=== PATIENT | female | born 1980 ===

== ENCOUNTER 2024-04-17 13:28 | Outpatient (AMB) | payer OTHER, SELFPAY ==
[2024-04-17 13:30] VITALS: BP 150/120; PULSE 88; O2SAT 95; BMI 34.5
--- NOTE | 2024-04-17 13:30 | MHC.PC.OV ---
Vital Signs 04/17/24 13:30 04/17/24 14:04 Height 5 ft 7 in Weight 220 lb 6 oz BMI 34.5 BP 150/120 H 160/110 H Blood Pressure Location Lt brachial Lt brachial Position Sitting Sitting Pulse 88 Pulse Source Pulse Oximeter Pulse Oximetry (%) 95 Oxygen Delivery Method Room Air Intake Visit Reasons: establish care Intake Note: The patient is a new patient establishing care for ADHD. They are transferring care from [facility]. Medical records were requested today. Prosthetic Technician Required: No Accompanied by: Self / Same As Patient Allergies Milk Containing Products (Dairy) Allergy (Mild, Verified 04/17/24 13:51) stomach ache Medication List - Last Reconciled 04/17/24 by Caity Qiu PA-C fluticasone propionate 50 mcg/actuation 1 spray intranasal DAILY lisdexamfetamine 20 mg PO DAILY melatonin 10 mg PO BEDTIME PRN Tobacco use date assessed: 04/17/24 Dental Screening Dental Screen Date: 04/17/24 Did you have a dental visit in the last 12 months?: Yes Did you have a dental problem in the last 6 months where you did not have access to dental care?: No Was dental information given to patient?: Patient has dentist HPI establish care HPI Details 43 year old female coming to the office for the first time. Patient is not known to [facility] [place]. Presenting with concerns regarding elevated blood pressure readings. She expresses uncertainty as to whether this is due to white coat syndrome or true hypertension, with consistently high readings documented in clinical settings. She has been diagnosed with Adult Attention Deficit Hyperactivity Disorder (ADHD), which is being managed with Vyvanse, and she is under the care of psychiatrist Ramana Murray. The patient also reports a history of chronic dry eye syndrome secondary to laser eye correction in 2019 and is using Xiidra eye drops as part of the management routine, addressing resulting sensitivity and inadequate tear production. She follows with gynecology through [facility] [place] for routine Pap smears and mammograms. [facility] Medical History (Updated 04/17/24 @ 14:17 by Caity Qiu PA-C) MTHFR mutation Depression Endocarditis Obesity, class 2 ADHD Surgical History (Updated 04/17/24 @ 13:46 by JUAN ANTONIO Santos) History of bilateral salpingectomy Family History (Updated 04/17/24 @ 13:58 by Caity Qiu PA-C) Mother Breast cancer Social History Housing: House Patient Tobacco Use Status: Never used Tobacco e-Cigarette/Vaping Use: Never Used service: No Current occupational status: employed Cognitive needs: No Hearing needs: No Vision needs: No Female Reproductive History Menstrual Total pregnancies: 2 Full term: 2 History of abnormal pap smear: No Questionnaire PHQ-9 Over the last 2 weeks, how often have you been bothered by any of the following problems? 1. Little interest or pleasure in doing things: nearly every day 2. Feeling down, depressed, or hopeless: several days 3. Trouble falling or staying asleep, or sleeping too much: several days 4. Feeling tired or having little energy: several days 5. Poor appetite or overeating: several days 6. Feeling bad about yourself - or that you are a failure or have let yourself or your family down: not at all 7. Trouble concentrating on things, such as reading the newspaper or watching television: not at all 8. Moving or speaking so slowly that other people could have noticed. Or the opposite - being so fidgety or restless that you have been moving around a lot more than usual: not at all 9. Thoughts that you would be better off or of hurting yourself in some way: not at all Total score: 7 Depression Screening Interpretation: Positive Depression Screening Follow-up: Existing condition and Declines treatment Depression Screening Done: Yes 88659 - PHQ-9 Billing: Yes Source: Developed by Drs. Jean Pierre Ojeda, Sahra Green, Angel Reynaga and colleagues, with an educational airam from [employer]. Thrive Questionnaire Date Thrive assessed: 04/17/24 I am a: Patient What is your living situation today?: I have a steady place to live Within the past 12 months, did the food you bought not last and you didn't have the money to get more?: I choose not to answer this question Within the past 12 months, did you worry whether your food would run out before you got money to buy more?: I choose not to answer this question Do you have trouble paying for medicines?: I choose not to answer this question Do you have trouble getting transportation to medical appointments?: No Do you have trouble paying your heating and electricity bill?: I choose not to answer this question Do you have trouble taking care of your child, family member or friend?: No Do you have trouble with day-to-day activities such as bathing, preparing meals, shopping, managing finances, etc.?: No Are you currently unemployed and looking for a job?: No Are you interested in more education?: No Please select the resources that you would like help with: None Currently or been in a relationship where the following occur: No concerns reported THRIVE Score: 0 AUDIT C Alcohol Use Questionnaire (AUDIT-C) 1. How often do you have a drink containing alcohol?: Monthly or less 2. How many drinks containing alcohol do you have on a typical day when you are drinking?: 1 or 2 3. How often do you have six or more drinks on one occasion?: Never Total Score: 1 DALI-7 AMB Questionnaire DALI-7 Date DALI - 7 assessed: 04/17/24 Feeling nervous, anxious, or on edge: 1 = Several days Not being able to stop or control worryin = Several days Worrying too much about different things: 1 = Several days Trouble relaxin = Several days Being so restless that it is hard to sit still: 0 = Not at all Becoming easily annoyed or irritable: 0 = Not at all Feeling afraid as if something awful might happen: 0 = Not at all Total DALI-7 score (0-4 normal; 5-9 mild; 10-14 moderate; 15-21 severe): 4 Source: Developed by Drs. Jean Pierre Ojeda, Sahra Green, Angel Reynaga and colleagues, with an educational airam from [employer]. DALI-7 Assessment Billing DALI-7 Assessment Tool: DALI-7 Assessment 07475 Review of Systems Const Denies body aches, Denies chills, Denies fever(s), Denies headache(s) and Denies poor appetite Eyes Reports no additional complaints ENT Denies dizziness and Denies headache(s) Card Denies chest pain, Denies syncope, Denies edema, Denies irregular heart rhythm, Denies lightheadedness and Denies dyspnea Resp Denies cough and Denies dyspnea GI Denies abdominal pain, Denies constipation, Denies diarrhea, Denies nausea and Denies vomiting Reports no additional complaints Musc Reports no additional complaints and Denies abnormal gait Skin/Breast Reports system reviewed and no additional complaints, except as documented Neuro Denies abnormal gait, Denies dizziness, Denies syncope and Denies headache(s) Psych Reports no additional complaints Physical exam (Primary Care) Vital Signs: Last Vital Signs Pulse 88 04/17/24 13:30 BP 150/120 H 04/17/24 13:30 Pulse Ox 95 04/17/24 13:30 Oxygen Delivery Method Room Air 04/17/24 13:30 BMI result Body Mass Index 34.5 Tobacco/Smoking Status: Tobacco use Status Tobacco use date assessed 04/17/24 04/17/24 13:36 Patient Tobacco Use Status Never used Tobacco 04/17/24 13:36 Tobacco use type 04/17/24 13:36 e-Cigarette/Vaping Use Never Used 04/17/24 13:36 PHQ-9: PHQ-9 Score PHQ-9: Total score 7 04/17/24 13:36 Depression Screening Interpretation: Positive Depression Screening Follow-up: Existing condition and Declines treatment Thrive Assessment: Date of Thrive Assessment Date Thrive assessed 04/17/24 04/17/24 13:33 Currently or been in a relationship where the following occur: No concerns reported Const General: cooperative, healthy appearing, comfortable and no acute distress Orientation/consciousness: patient oriented x3 HENMT Head: Yes normocephalic Ears: hearing grossly normal bilaterally General nose exam: Normal external nose present Eyes General: appearance normal, both eyes and all related structures Conjunctivae: conjunctivae normal Neck Neck: Yes full ROM and Yes no lymphadenopathy Resp Effort & Inspection: normal respiratory effort Auscultation: clear to auscultation bilaterally, no crackles, no rales, no rhonchi and no wheezes Cardio Rate: regular rate Rhythm: regular rhythm Skin General skin exam: no rashes or lesions noted Neuro General: patient oriented x3 Gait exam (Neuro): Normal gait present Extrem General: Yes normal to inspection, Yes full ROM and No edema Psych Affect: normal affect Attitude: cooperative Insight: Good insight present (Psych) Judgement: Good judgement present (Psych) Coding Level of Care Code New Pt Level 4 (63018) Diagnoses Elevated blood pressure reading without diagnosis of hypertension R03.0 Screening for hypercholesterolemia Z13.220 ADHD F90.9 Depression F32.A Additional Codes DALI-7 Assessment Billing - DALI-7 Assessment Tool: DALI-7 Assessment 87908 ([id number]) PHQ-9 - 17207 - PHQ-9 Billing: Yes ([id number]) Assessment & Plan Assessment & Plan (1) Elevated blood pressure reading without diagnosis of hypertension: Code(s): R03.0 - Elevated blood-pressure reading, without diagnosis of hypertension Category: Medical Plan: The patient's concerns regarding elevated blood pressure will be assessed with home monitoring to establish if hypertension is present. A practical plan to observe blood pressure at home and potentially start pharmacological treatment, such as an VARSHA inhibitor, has been discussed if elevated readings persist. Fasting blood work is planned to explore any relevant factors for hypertension, and a follow-up is scheduled in one month to review findings. I reviewed with patient red flag symptoms of high blood pressure when to present for re-evaluation (2) Screening for hypercholesterolemia: Code(s): Z13.220 - Encounter for screening for lipoid disorders Category: Medical Plan: Ordered for blood work (3) ADHD: Comment: psychiatrist Ramana Murray every few months - 2024 Code(s): F90.9 - Attention-deficit hyperactivity disorder, unspecified type Category: Medical Plan: Currently following with psychiatrist Ramana Murray who prescribes Vyvanse. Continue to follow with psychiatrist (4) Depression: Comment: Counselor weekly 2024 Code(s): F32.A - Depression, unspecified Category: Medical Plan: Declines medication at this time as she has been on medical management in the past and did not find it helpful. Continue to follow with counselor and reach out to the office if additional assistance as needed. Plan This note was constructed using voice recognition software. While every effort has been made to ensure accuracy and functional skills tutor, still areas may have been included sometimes these areas may affect the content or meeting of the given symptoms. Total time spent caring for the patient today was 30 minutes. This includes time spent before the visit reviewing the chart, time spent during the visit, and time spent after the visit and documentation. Orders: Orders Comprehensive Met. Panel Today Z00.00 - Encounter for general adult medical examination without abnormal findings Lipid Panel Today R03.0 - Elevated blood-pressure reading, without diagnosis of hypertension, Z13.220 - Encounter for screening for lipoid disorders TSH reflex Free T4 Today Z00.00 - Encounter for general adult medical examination without abnormal findings Vitamin B12 and Folate Today Z00.00 - Encounter for general adult medical examination without abnormal findings Vitamin D 25-OH Total Today Z00.00 - Encounter for general adult medical examination without abnormal findings Complete Blood Count Auto Diff Today Z00.00 - Encounter for general adult medical examination without abnormal findings Free T4 (Free Thyroxine) Today Z00.00 - Encounter for general adult medical examination without abnormal findings
--- OUTSIDE RECORDS SUMMARY | 2024-04-17 13:30 | XMS_ITS | Data Portability ---
Author Organization [place] - [facility],, STACEY QUEZADA MD Address [address] [address] Assessment No assessment recorded. Plan of Treatment Reminders Order Date Submit Date Provider Last Modified By Organization Details Last Modified Time Details Appointments ANNUAL EXAM 2024 09:40A M Stacey Quezada MD Not available Not available Not available Lab pap test, thinprep , cervical 2023 024 [email or web address] [facility], [address] [place], [address], 04/12/2023 07:48:33 beta-HCG , qualitat melody, serum or plasma 2022 023 KRYSTINA [facility], [address] [place], [address], 03/20/2022 22:29:30 pap test, thinprep , cervical 2021 022 [facility], Cytopathology Service, [address] [place] [address], [id number], 10/14/2021 08:24:06 fecal occult blood, stool 2021 022 [email or web address] 1 In-Office Order, Internal Use Only DO Not Attach Compendium DO Not Attach Compendium, Do Not Delete/merge, [id number] 10/07/2021 13:57:37 pap test, thinprep , cervical 2020 021 [facility], Cytopathology Service, [address] [place] [address], [id number], 10/14/2020 09:46:51 [email or web address] a sp, culture, unspecif ied specimen [address] [facility], Cytopathology Service, [address] [place] [address], [id number], 10/14/2020 09:46:51 NG DNA, PCR, genital [address] [facility], Cytopathology Service, [address] [place] [address], [id number], 10/14/2020 09:46:51 pap test, thinprep , cervical 2019 020 [facility], Cytopathology Service, [address] [place] [address], [id number], 10/18/2019 07:11:54 [email or web address] a sp, culture, unspecif ied specimen 2019 020 [facility] Pathology [facility], Cytopathology Service, [address] [place] [address], [id number], 10/11/2019 07:32:30 NG DNA, PCR, genital 2019 020 [facility] Path[facility], Cytopathology Service, [address] [place] [address], [id number], 10/11/2019 07:32:30 Referral [facility] surgery referral - desire for permanen t steriliz ation. Has IUD in at this time, needs to stay in for history of menorrha lulu 2021 022 KRYSTINA [facility] [place], [address], [address], 01/25/2022 16:26:51 Procedures None recorded . Surgeries None recorded . Imaging MAMMO, screenin g, digital, bilatera l - Breast Aspirati on and/or Biopsy if needed 2023 024 [email or web address] [facility] Orders, [address], [place], [address], 03/30/2024 07:18:04 MAMMO, screenin g, digital, cherryatera l 2021 022 KRYSTINA [facility], [address], [place], [address], 12/16/2021 16:50:58 Medication Orders None recorded . Patient TargetsNo targets recorded. Patient Instructions Encounter Date Encounter Id Patient Instructions Last Modified By Organization Details Last Modified Time 10/04/2019 [id number] She is here for annual exam. Mirena placed 11/16. Menses light. 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 __ Note from 2019: She is here for annual exam, menses are regular every 28 days, A lot sport internship than they used to be, most days I can get away with just a panti liner. She had the Mirena placed 10/2017. She is a massage therapist. ___ She appears to be doing well. She is advised to get 1500 mg of calcium daily into her diet and supplements combined. There is a health benefit with adequate vitamin D supplementation to at least 400 units daily, daily aerobic exercise of 30 minutes, and stress reduction. Monthly self breast exam was taught, and stressed, and is advised to call if she discovers any new mass in the breast. Seat belt use for herself and passengers are advised. There are significant health benefits of becoming and remainig fit, with an optimal BMI. There is a potential reduction in chronic discomfort, diminished risks of hypertension, diabetes, and heart disease with the proper weight management. With a recommended BMI there can be improved mobility as she ages. Strategies to reach and maintain her target weight were discussed in detail. Not available 10/04/2019 11:04:03 10/07/2020 [id number] learning about healthy weight Not available 10/07/2020 12:10:41 She is here for annual exam. Idalia placed 11/16. Menses light. 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 She appears to be doing well. She is advised to get 1500 mg of calcium daily into her diet and supplements combined. We discussed the benefits of adequate vitamin D supplementation to at least 400 units daily, daily aerobic exercise of 30 minutes, and stress reduction. Monthly self breast exam was taught, and stressed, and is advised to call if she discovers any new masses. Not available 10/07/2020 12:10:55 10/07/2021 [id number] learning about healthy weight Not available 10/07/2021 10:56:16 She is here for annual exam, is doing well. Idalia placed 10/2017. She notes that she has decided to get permanent sterilization because she is concerned about the political climate and worries she may not be able to get a new IUD in the future. Note from 2020: She is here for annual exam. Idalia placed 11/16. Menses light. 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 ____ Her IUD managed her menorrhagia, and we discussed that even if she had a BTL she may still want to consider keeping the IUD in to manage menorrhagia. She will consider this. Her partner absolutely declines vasectomy. She appears to be doing well. She is advised to get 1500 mg of calcium daily into her diet and supplements combined. There is a health benefit with adequate vitamin D supplementation to at least 400 units daily, daily aerobic exercise of 30 minutes, and stress reduction. Monthly self breast exam was taught, and stressed, and is advised to call if she discovers any new mass in the breast. Not available 10/07/2021 15:20:06 03/20/2022 [id number] heavy menstrual periods: care instructions Not available 03/20/2022 12:58:43 secondary amenorrhea: care instructions Not available 03/20/2022 12:56:41 This visit is a phone telehealth visit. The patient consented to the visit by phone. The patient was at home at the time of the call and the provider and patient were the only people on the line. I was at [address] [facility], [address], [place], [place], at the time of the call. She had a Mirena placed in 2017, and typically has a light bleeding for a day or two, each month. This last menses however began on 03/20/22 (today) and is heavy, with dark and red blood, which is very unusual for her. No cramping, no pain. She had a period of amenorrhea now followed by menorrhagia, will need to rule out . Check serum HCG today. She is advised that if she has ANY pain she should let me know, or go to the ED. We discussed that with IUD one can get a tubal which can be life threatening. She will go today for blood work. All questions answered. The patient was agreeable to this plan. She is aware of the limitations caused by the covid restrictions, and this phone call, but was appreciative of the efforts to complete the evaluation. Face to face discussion 20 minutes Not available 03/20/2022 13:05:48 04/05/2023 [id number] learning about healthy weight Not available 04/05/2023 10:20:40 She is here for annual, she had a bilateral salpingectomy for control, last July, and the IUD was removed then. She is no menses now, is aware that pap may not be readable, I'm here, now she notes, she prefers to not reschedule. Her has the flu although he has not tested for influenza, he has been sick for 3 days, he tested negative for covid 2 days ago has not retested. He works from home. She notes the kids or she may have brought it home however they are not feeling ill. __ note from 2021: She is here for annual exam, is doing well. Mirena placed 10/2017. She notes that she has decided to get permanent sterilization because she is concerned about the political climate and worries she may not be able to get a new IUD in the future. __ She appears to be doing well. Monthly self breast exam was taught, and stressed, and is advised to call if she discovers any new mass in the breast. Not available 04/05/2023 10:20:26 Reason for Referral Gynecologic Surgery Referral for Sterilization requested desire for permanent sterilization. Has IUD in at this time, needs to stay in for history of menorrhagia Referring Physician: Stacey Quezada, Gynecology, Encounter Date: 10/07/2021 Results Created Date Observation Date Name Description Value Unit Range Abnormal Flag Note LastModifiedBy Organization Detail LastModifiedTime 10/04/19 20 10/04/2019 gener al5ca se [id number] RESUL TS OF APTIM A COMBO 2 ASSAY : Chlam ydia: NEGAT MELODY N. rula lima e: NEGAT MELODY Compl eted on 10-04 SALAS JACKSON M.D. , Patho logis t (Case elect starr duncan alice d 10 05 2019) CLINI FAHEEM INFOR MATIO N: LPS neg, z12.4 , z01.4 19, z11.3 SOURC E: ThinP rep Pap for CT/GC Gross Descr iptio n: ThinP rep Vial Recei cameron. Physi cians MICHAEL DINH/ [phone] Not Available [facility], Cytopathology Service [address] [facility], [place], [address], 10/05/2019 16:05:54 10/04/1910/04/2019 pap test, thinp rep, cervi faheem [id number] ThinP rep Pap, Image d: NEGAT MELODY FOR SQUAM OUS INTRA EPITH ELIAL LESIO N AND DOMITILA MCMANUS . React melody cellu lar campoverde es. Kathl een Dziur a , CT( CP) (Case Scree lawrence 10 06 2019) Sofiya Degroot M.D. , Patho logis t (Case elect starr duncan alice d 10 10 2019) ADEQU ACY: Satis facto ry Endoc ervic al/tr ansfo rmati on zone compo nent prese nt. SOURC E: ThinP rep Pap HPV IF ASCUS , Cervi faheem, Image d CLINI FAHEEM INFOR MATIO N: HPV If Diagn osis of ASCUS . lps neg, z01.4 19, z11.3 Not Available [facility], Cytopathology Service [address] [place], [address], 10/11/2019 13:26:16 10/08/19 21 10/07/2020 GENER AL5CA SE [id number] Chlam ydia: NEGAT MELODY N. rula lima e: NEGAT MELODY Compl eted on 10-08 CLINI FAHEEM INFOR MATIO N: Routi ne exam. LPS 0 NEG [Z01. 419, Z11.3 ] SOURC E: ThinP rep Pap for CT/GC Gross Descr iptio n: ThinP rep Vial Recei cameron. Physi cians MICHAEL N NAKULMI LLROBSON/ [phone] Not Available [facility], Cytopathology Service [address] [place], [address], 10/09/2020 09:35:36 10/08/19 21 10/07/2020 PAP1C ASE [email or web address] ThinP rep Pap, Image d: NEGAT MELODY FOR SQUAM OUS INTRA EPITH ELIAL FELICITY Sánchez AND MALIG MARIETTA . Mayuri Pettit , CT( CP) (Case elect starr duncan alice d 10 09 2020) ADEQU ACY: Satis facto ry Endoc ervic al/tr ansfo rmati on zone compo nent absen t. SOURC E: ThinP rep Pap HPV IF ASCUS , Cervi faheem, Image d CLINI FAHEEM INFOR MATIO N: HPV If Diagn osis of ASCUS . LPS 0 NEG [Z12. 4, Z01.4 19] Not Available [facility], Cytopathology Service [address] [place], [address], 10/09/2020 14:17:18 10/08/19 22 10/07/2021 PAP1C ASE [id number] ThinP rep Pap, Image d: NEGAT MELODY FOR SQUAM OUS INTRA EPITH ELIAL FELICITY Sánchez AND DOMITILA MCMANUS . Taylor Ledbetter hers , CT( CP) (Case elect starr duncan alice d 10 13 2021) ADEQU ACY: Satis facto ry Endoc ervic al/tr ansfo rmati on zone compo nent absen t. SOURC E: ThinP rep Pap HPV IF Ascus : Refle x 16 and 18, Cervi faheem, Image d CLINI FAHEEM INFOR MATIO N: HPV If Diagn osis of ASCUS . Z12.4 Not Available [facility] Cytopathology Service [address] [place], [address], 10/13/2021 15:25:57 10/08/19 22 10/07/2021 fecal occul t blood , stool Occult Blood negati ve Not Available In-Office Order Internal Use Only DO Not Attach Compendium DO Not Attach Compendium, Do Not Delete/merge, [id number] 10/07/2021 10:44:17 03/20/19 23 03/20/2022 HCG PLUS BETA HCG plus beta <1 mIU/m L (<5) Males and non-p regna nt femal es: <5 mIU/m L Femal e Pregn sarah (week s of gesta tion) : 4 weeks 5-100 mIU/m L 5 weeks 200-3 000 mIU/m L 6 weeks 10,00 0-80, 000 mIU/m L 7-14 weeks 90,00 0-500 ,000 mIU/m L 15-26 weeks 5,000 -80,0 00 mIU/m L Peak: Late 1st Trime ster 300,0 00 mIU/m L Inter preta tion: hCG level s incre ase expon entia lly durin g very early pregn sarah, after reach ing a plate au durin g the late first trime ster. hCG level s stead brooklyn decli ne until a stead y state which is seen throu ghout the secon d and third trime sters . Altho ugh the main clini faheem utili ty of hCG level s lies withi n early pregn sarah, these findi ngs under line the impor tance of hCG throu ghout gesta fior l physi ology and sugge st that varia tions in hCG level s may be assoc iated with adver se clini faheem outco mes such as loss, preec lamps ia, prete rm deliv robyn and growt h restr ictio n. Not Available [facility] [address] [place], [address], 03/20/2022 22:29:29 04/05/19 24 04/05/2023 [facility] CYTOL OGY results Patie nt Name: SHRADDHA CURTIS nt : 1980 (Age: 42) Lab Acces matt #: [id number] Colle ction Date: Acces matt Date: 024 Sign Out Date: 024 Tissu e Sourc e: 1: THINP REP [employer]IPAL PAP TEST, CERVI FAHEEM: Final Diagn osis: NEGAT MELODY FOR INTRA EPITH ELIAL LESIO N OR MALIG MARIETTA . Satis facto ry for evalu ation . Endoc ervic al/tr ansfo rmati on zone prese nt. Clini faheem Histo ry: Date of Last Menst rual Perio d: not avail able Menst rual Histo ry: not avail able Contr acept melody Histo ry: not avail able Ancil naz Testi ng: HPV (ASCU S) Case image d by the ThinP rep Imagi ng Syste m with steve bowman rescr martha g or noemi w. Perfo rmed at [facility] ate Refer ence Labor atory depar tment of Cytol ogy, [address] [place] Clini faheem Histo ry (othe r): Z01.4 19, ROUTI NE SCREE N, LPS 10/07 Phone #: [phone], On-Ca ll Patho logis t: [id number] Not Available [facility] [address] [place], [address], 04/09/2023 14:36:25 12/17/19 22 12/16/2021 MAMMO , scree kendra, digit al, bilat eral No observ ation record ed. [facility] [address], [place], [address], 12/17/2021 08:29:10 Result Notes None recorded. 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, she does not make folate, so she takes a folate supplement daily Stacey Quezada MD [address], [place], [address], [place] - Zeke in [facility], 8 10:48:04 depression [id number] Active 2017 Stacey Quezada MD [address], [place], [address], ELZBIETA Alanis in [facility], 8 10:57:52 Dysfunctio nal uterine bleeding Active 2017 Stacey Quezada MD [address], [place], [address], [place] - Zeke in [facility], 8 11:11:01 Dry eyes [id number] Active 2020 ELZBIETA Limon in [facility], 1 10:45:28 Problem Notes None recorded. Procedures Surgical History Date Name Laterality Status Provider Name and Address Organization Details Recorded Time 3 total excision of bilateral fallopian tubes completed Iva Alanis in [facility], 04/05/2023 09:50:35 2 Most Recent Mammogram completed Iva Alanis in [facility], 04/05/2023 09:51:29 9 Unlisted px ant segment eye completed Maria Victoria Jain [place] - [facility], 10/04/2019 10:44:55 8 IUD Insertion completed Stacey Quezada MD [address] [facility],[address], [place], [address], [place] [facility], 11/19/2017 11:00:27 5 Other completed Ivaarlene Harrell [place] - [facility], 09/10/2017 14:15:31 4 Other completed Iva Harrell [place] - [facility], 09/10/2017 14:14:07 Imaging Results Imaging Date Name Status LastModified by Organiz ation Details LastModified Time 12/16/2021 MAMMO, screening, digital, bilateral completed [facility] [address], [place], [address], 12/17/2021 08:29:10 Procedure Notes None recorded. Medical Equipment None Reported. Allergies No known drug allergies Medications Name Sig Start Date Stop Date Status Note LastModified by Organization Details LastModified Time amoxicillin 500 mg capsule TAKE 4 CAPSULES BY MOUTH 1 HOUR PRIOR TO APPOINTME NT active Not Available Not Available No t Available Mirena 21 mcg/24 hr (up to 8 years) 52 mg intrauterin e device Take 1 device as needed by intrauter ine route. 04/05 completed Not Available Not Available Not Available fluconazole 100 mg tablet TAKE 1 TABLET BY MOUTH TODAY, MAY REPEAT IN 3 DAYS IF SYMPTOMS PERSIST active Not Available Not Available No t Available acetaminoph en 325 mg tablet TAKE 3 TABLETS BY MOUTH EVERY 6 HOURS NEEDED FOR PAIN active Not Available Not Available No t Available doxycycline hyclate 100 mg capsule 1 CAP BY MOUTH 2 TIMES PER DAY FOR 7 DAYS 04/05 completed Not Available Not Available Not Available Prenatabs Rx 29 mg iron-1 mg tablet 09/10 completed Not Available Not Available Not Available azithromyci n 250 mg tablet TAKE 2 TABLETS BY MOUTH TODAY, THEN TAKE 1 TABLET DAILY FOR 4 DAYS DIRECTED 04/05 completed Not Available Not Available Not Available ibuprofen 800 mg tablet TAKE 1 TABLET BY MOUTH EVERY 8 HOURS 04/05 completed Not Available Not Available Not Available fluconazole 150 mg tablet TAKE 1 TABLET BY MOUTH ONCE, REPEAT IN 72 HOURS IF SYMPTOMAT IC 04/05 completed Not Available Not Available Not Available fluticasone propionate 0.05 % topical cream TWICE A DAY active Not Available Not Available No t Available phenazopyri dine 200 mg tablet TAKE 1 TABLET BY MOUTH EVERY 8 HOURS 10/07 completed Not Available Not Available Not Available prednisone 20 mg tablet TAKE 2 TABLETS BY MOUTH EVERY DAY FOR 5 DAYS 04/05 completed Not Available Not Available Not Available benzonatate 100 mg capsule TAKE 2 CAPSULES BY MOUTH 2-3 TIMES DAILY NEEDED FOR COUGH 04/05 completed Not Available Not Available Not Available cephalexin 500 mg capsule 10/08 completed Not Available Not Available Not Available Gas Relief (simethicon e) 80 mg chewable tablet 1 TABLET CHEW 4 TIMES A DAY 04/05 completed Not Available Not Available Not Available fluoxetine 10 mg capsule Take 1 capsule every day by oral route. 09/28 completed Not Available Not Available Not Available docusate sodium 100 mg capsule TAKE 1 CAPSULE BY MOUTH 2 TIMES A DAY NEEDED FOR CONSTIPAT ION 04/05 completed Not Available Not Available Not Available loteprednol etabonate 0.5 % eye drops,suspe nsion INSTILL 1 DROP INTO BOTH EYES TWICE A DAY active Not Available Not Available No t Available albuterol sulfate HFA 90 mcg/actuati on aerosol inhaler INHALE 2 PUFFS BY MOUTH EVERY 6 HOURS NEEDED FOR WHEEZING/ SHORTNESS OF BREATH 04/05 completed Not Available Not Available Not Available fluoxetine 20 mg capsule TAKE 1 CAPSULE BY MOUTH EVERY DAY 09/28 completed Not Available Not Available Not Available fluticasone propionate 50 mcg/actuati on nasal spray,suspe nsion USE 1 SPRAY IN EACH NOSTRIL ONCE DAILY active Not Available Not Available No t Available azithromyci n 500 mg tablet Take 1 tablet every day by oral route for 3 days. 12/17 completed Not Available Not Available Not Available nitrofurant oin monohydrate /macrocryst als 100 mg capsule TAKE 1 CAP BY MOUTH 2 TIMES PER DAY MUST ADMINISTE R WITH A MEAL/FOOD 04/05 completed Not Available Not Available Not Available Boostrix Tdap 2.5 Lf unit-8 mcg-5 Lf/0.5 mL intramuscul ar syringe TO BE ADMINISTE RED BY PHARMACIS T FOR IMMUNIZAT ION active Not Available Not Available No t Available melatonin active Not Available Not Joanna ilable Not Available aspirin active Not Available Not Avail able Not Available 5-HTP active Not Available Not Availa ble Not Available lisdexamfet amine 20 mg capsule TAKE 1 CAPSULE BY MOUTH EVERY MORNING active Not Available Not Available No t Available loteprednol etabonate 0.5 % eye gel drops INSTILL 1 DROP INTO BOTH EYES TWICE A DAY active Not Available Not Available No t Available lisdexamfet amine 10 mg capsule TAKE 1 CAPSULE BY MOUTH EVERY MORNING FOR ADHD F90.9 active Not Available Not Available No t Available Flucelvax Quad 8521-3078 (PF) 60 mcg (15 mcg x 4)/0.5 mL IM syringe TO BE ADMINISTE RED BY PHARMACIS T FOR IMMUNIZAT ION 12/17 completed Not Available Not Available Not Available Cequa 0.09 % eye drops in a dropperette INSTILL 1 DROP INTO BOTH EYES TWICE A DAY active Not Available Not Available No t Available Lotemax SM 0.38 % eye gel drops INSTILL 1 DROP INTO BOTH EYES TWICE A DAY DIRECTED active Not Available Not Available No t Available Vitals Date Recorded Body height Body mass index (BMI) Body weight Body temperature Heart rate Systolic blood pressure Diastolic blood pressure Provider Name and Address Organization Details Last Updated DateTime 0 170.18 cm 38.3 kg/m2 028709. 69 g 97.7 [degF] 89 /min 149 mm[Hg] 90 mm[Hg] Maria Victoria Jain [place] - [facility], 0 10:40:04 Date Recorded Body weight Body mass index (BMI) Body height Heart rate Body temperature Systolic blood pressure Diastolic blood pressure Provider Name and Address Organization Details Last Updated DateTime 1 331185. 68 g 39.3 kg/m2 170.18 cm 88 /min 97.5 [degF] 139 mm[Hg] 99 mm[Hg] Maria Victoria Jain [place] [facility], 1 10:43:46 Date Recorded Body height Body mass index (BMI) Body weight Body temperature Heart rate Systolic blood pressure Diastolic blood pressure Provider Name and Address Organization Details Last Updated DateTime 2 170.18 cm 37.5 kg/m2 291137. 29 g 98.2 [degF] 99 /min 159 mm[Hg] 97 mm[Hg] Iva Harrell [place] - [facility], 2 10:39:28 Date Recorded Body height Provider Name an d Address Organization Details Last Updated DateTime 03/20/2022 170.18 cm Iva Harrell [place] - [facility], 03/20/2022 12:46:03 Date Recorded Body height Body mass index (BMI) Body weight Heart rate Body temperature Systolic blood pressure Diastolic blood pressure Provider Name and Address Organization Details Last Updated DateTime 4 170.18 cm 34.8 kg/m2 729581. 51 g 95 /min 97.3 [degF] 171 mm[Hg] 113 mm[Hg] Iva Harrell [place] - [facility], 4 09:44:20 Social History Question Answer Notes LastModified by Organizat ion Details LastModified Time Tobacco Smoking Status Never Smoker Not Available [facility] 01/02/2020 03:19:43 Do You Have An Advance Directive? No [id number] Information not available 01/02/2020 What Is Your Level Of Alcohol Consumption? Occasional Information not available 10/07/2020 How Many Years Have You Consumed Alcohol? 20 Information not available 10/07/2021 What Is Your Level Of Caffeine Consumption? Occasional Information not available 10/07/2021 How Much Tobacco Do You Chew? None [id number] Information not available 01/02/2020 In The 14 Days Before Symptom Onset, Have You Had Close Contact With A Laboratory-confir med COVID-19 While That Case Was Ill? No [id number] Information not available 01/02/2020 In The 14 Days Before Symptom Onset, Have You Had Close Contact With A Person Who Is Under Investigation For COVID-19 While That Person Was Ill? No [id number] Information not available 01/02/2020 Have You Been To An Area Known To Be High Risk For COVID-19? No [id number] Information not available 01/02/2020 Are You Currently Employed? No Information not available 10/07/2020 What Type Of Diet Are You Following? REGULAR [id number] Information not available 01/02/2020 Which Illicit Or Recreational Drugs Have You Used? No [id number] Information not available 01/02/2020 Do You Reside In Or Have You Traveled To An Area Where Ebola Virus Transmission Is Active? No [id number] Information not available 01/02/2020 Do You Or Have You Ever Used E-cigarettes Or Vape? Never Used Electronic Cigarettes [id number] Information not available 01/02/2020 Education 4 Year College Informatio n not available 09/10/2017 What Is The Highest Grade Or Level Of School You Have Completed Or The Highest Degree You Have Received? [id number] Information not available 10/07/2020 What Is Your Occupation? Stay At Home Mom Information not available 10/07/2020 How Many Days In The Past Year Have You Had A Heavy Drinking Consumption (4+ Female, 5+ Male)? 0 Information no t available 09/10/2017 Are There Any Guns Present In Your Home? No [id number] Information not available 01/02/2020 High Number Of Sexual Partners Yes Information not available 09/10/2017 To Which Gender Do You Self-identify? Female Information not available 09/10/2017 Marital Status Informatio n not available 09/10/2017 What Was The Date Of Your Most Recent Tobacco Screening? 04/05/2023 Information not available 04/05/2023 What Is Your Relationship Status? Information not available 10/07/2020 Seat Belts Used Routinely Yes Information not available 09/10/2017 Are You Sexually Active? Yes Information not available 10/07/2021 Smoke Alarm In Home Yes Information not available 09/10/2017 Do You Or Have You Ever Used Smokeless Tobacco? Never Used Smokeless Tobacco [id number] Information not available 01/02/2020 How Much Tobacco Do You Smoke? No [id number] Information not available 01/02/2020 General Stress Level High Information not available 09/10/2017 Do You Feel Stressed (tense, Restless, Nervous, Or Anxious, Or Unable To Sleep At Night)? [id number] Information not available 10/07/2020 Do You Use Any Illicit Or Recreational Drugs? No Information not available 10/07/2020 Do You Use Sunscreen Routinely? Yes [id number] Information not available 01/02/2020 How Many Years Have You Smoked Tobacco? 0 [id number] Information not available 01/02/2020 Have You Recently (within The Last 12 Weeks, Or During A Current ) Traveled To Or Lived In A Zika-affected Area? No Information not available 09/10/2017 How Many Days In The Past Year Have You Consumed 4 Or More Drinks? 0 Information no t available 10/07/2021 Sex: Female Functional Status Question Answer Note LastModified by [employer] ion Details LastModified Time What is your exercise level? Occasional [id number] Information not available 01/02/2020 Mental Status None recorded. Family History Relationship Description Onset Age of this Age Resolved Age Notes LastModified by Organization Details LastModified Time Mother Malignant tumor of breast 46 brca tested and negati ve. tmeczywor Not available 09/10/2017 14:10:52 Mother Anxiety disorder quite a bit on matern al side along with wilderbi matt. tmeczywor Not available 09/10/2017 14:11:33 Brother Anxiety disorder tmeczywor Not available 2017 14:11:33 Medical History Condition Response Anesthesia complications Y High Blood Pressure N Candidate for MyRisk panel N Autoimmune Condition N Thyroid Problems N Kidney or Bladder Problems N GI Problems N Lung Disease N Depression Y Defects or Inherited Disease N History of Ovarian Cancer N Anemia N History of Breast Cancer N MARYA exposure N BRCA testing in past N Osteopenia N Psychiatric Illness N Anxiety Disorder Y Diabetes N Arthritis Y Headaches or Migraines N Infertility N Asthma N History of Cancer N Endometriosis N Hepatitis N Heart Disease Y Hypertension N Osteoporosis N Gynecological History Statement/Question Response Dysmenorrhea N Flow Moderate Date of LMP 04/02/2023 Frequency of Cycle (Q days) 28 Menses Monthly Y Duration of Flow (days) 7 Age at Menarche 12 Current Control Method Sterilizati on Most Recent Mammogram 12/16/2021 Age at First Child 32 Obstetrics History GPAL:G 2 P 2 0 0 2 Type Value Full Term 2 Living 2 Total 2 Immunizations Vaccine Type Date Status Note Provider Nam e and Address Organization Details Recorded Time Tdap 01/27/2017 completed Iva Meczywor bala [place] - [facility], 04/05/2023 09:58:51 COVID-19, mRNA, LNP-S, PF, 30 mcg/0.3 mL dose 06/11/2020 completed Iva Meczywor null [place] - [facility], 04/05/2023 09:58:51 influenza nasal, unspecified formulation 02/19/2022 completed Iva Meczywor null [place] - [facility], 04/05/2023 09:58:51 Influenza, MDCK, quadrivalent, PF 01/27/2017 completed Iva Meczywor null, [place] - [facility], 04/05/2023 09:58:51 Influenza, MDCK, quadrivalent, PF 02/11/2020 completed Iva Meczywor null, [place] - [facility], 04/05/2023 09:58:51 COVID-19, mRNA, LNP-S, PF, 100 mcg/0.5mL dose or 50 mcg/0.25mL dose 02/01/2021 completed Iva Meczywor null [place] - [facility], 04/05/2023 09:58:51 COVID-19, mRNA, LNP-S, PF, 30 mcg/0.3 mL dose 07/02/2020 completed Iva Meczywor null [place] - [facility], 04/05/2023 09:58:51 COVID-19, mRNA, LNP-S, bivalent, PF, 30 mcg/0.3 mL dose 12/05/2021 completed Iva Meczywor null [place] - [facility], 04/05/2023 09:58:51 Influenza, split virus, quadrivalent, PF 03/06/2022 completed Iva mckenna [place] - [facility], 04/05/2023 09:58:51 Past Encounters Encounter ID Performer Location Encounter Start Date Encounter Closed Date Diagnosis/Indication Diagnosis SNOMED-CT Code Diagnosis ICD10 Code Diagnosis Note [id number] MD STACEY Olmstead MD [address] [place] [address], [place] [address] 09/10/2017 13:54:02 09/10/2017 15:31:34 Specialized medical examination 10727167 Z01.419 Venereal d isease screening 554106766 Z11.3 [id number] MD STACEY Olmstead MD [address] [place] [address],[facility] [place] [address] 10/08/2017 14:17:18 10/08/2017 14:54:26 [id number] MD STACEY Olmstead MD [address] [place] [address],[facility] [address] 11/05/2017 10:51:42 11/05/2017 11:52:17 [id number] MD STACEY Olmstead MD [address] [place] [address],[facility] [place] [address] 11/19/2017 10:20:14 11/19/2017 14:59:33 Insertion of intrauterine contraceptive device 64848235 Z30.430 [id number] MD STACEY Olmstead MD [address] [place] [address],[facility] [address] 12/17/2017 10:29:52 12/17/2017 14:16:30 depression 43090865 F53.0 [id number] MD STACEY Olmstead MD [address] [place] [address],[facility] [place] [address] 01/28/2018 10:44:38 01/28/2018 14:15:49 depression 48065468 F53.0 Dysfunctio nal uterine bleeding 27967811 N93.8 [id number] MD STACEY OlmsteadLLAN MD [address] [place] [address], [place] [address] 03/04/2018 10:39:54 03/04/2018 14:19:37 depression 09260169 F53.0 Dysfunctio nal uterine bleeding 23564139 N93.8 [id number] MD STACEY Olmstead MD [address] [place] [address],[facility] [place] [address] 09/28/2018 10:38:35 09/28/2018 11:48:57 Specialized medical examination 07461352 Z01.419 Venereal d isease screening 105567385 Z11.3 [id number] MD STACEY Olmstead MD [address] [place] [address], [place] [address] 10/04/2019 10:37:22 10/04/2019 11:55:40 Specialized medical examination 56553774 Z01.419 Venereal d isease screening 456267013 Z11.3 [id number] MD STACEY Olmstead MD [address] [place] [address] [place] [address] 10/07/2020 10:40:14 10/07/2020 13:43:11 Specialized medical examination 83717875 Z01.419 Venereal d isease screening 072861327 Z11.3 [id number] MD STACEY Olmstead MD [address] [place] [address],[facility] [place] [address] 10/07/2021 10:35:58 10/07/2021 15:34:36 Specialized medical examination 29661447 Z01.419 Screening for malignant neoplasm of rectum 963117874 Z12.12 Screening mammography 24 626672 Z12.31 Sterilizat ion requested 466506923 Z30.2 [id number] MD STACEY Olmstead MD [address] [place] [address], [place] [address] 03/20/2022 12:45:45 03/20/2022 13:43:58 Amenorrhea 06046965 N91.2 Menorrhagia 968802267 N9 2.0 [id number] MD STACEY Olmstead MD [address] [facility] [place] [address] 04/05/2023 09:37:02 04/05/2023 13:48:31 Specialized medical examination 64094940 Z01.419 Screening for malignant neoplasm of rectum 622735317 Z12.12 Screening mammography 24 667886 Z12.31 Health Concerns Section Related Observation LastModified by Organization Detai ls LastModified Time None Recorded Concern Status LastModified by Organization Details LastModified Time None Recorded Advance Directives Directive N: Payers Encounter Date Sequence Insurance Name Policy Number Policy Lopez Covered Member ID Lopez Member ID Guarantor Name 10/04/2019 1 [employer] - OPEN ACCESS PLUS [id number] Harris Alonzoicker [id number] 2 Marlee Lenny 10/07/2020 1 [employer] - OPEN ACCESS PLUS [id number] Harris Alonzoicker [id number] 2 Marlee Lenny 10/07/2021 1 [employer] - OPEN ACCESS PLUS [id number] Harris Alonzoicker [id number] 2 Marlee Lenny 03/20/2022 1 [employer] - OPEN ACCESS PLUS [id number] Harris Lenny [id number] 2 Marlee Lenny 04/05/2023 1 [employer] - OPEN ACCESS PLUS [id number] Harris Alonzoicker [id number] 2 Marlee Alonzoicker Notes Date Note Type Note Provider Name and Address Organization Details Recorded Time 10/04/2019 text/html She is here for annual exam. Mirena placed 11/16. Menses light. 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 Note from 2019: She is here for annual exam, menses are regular every 28 days, A lot sport internship than they used to be, most days I can get away with just a panti liner. She had the Mirena placed 10/2017. She is a massage therapist. Stacey Quezada MD [address] [facility],[address], [place], [address], [place] [facility], 10/04/2019 11:04:21 10/07/2020 text/html She is here for annual exam. Mirena placed 11/16. Menses light. 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 Stacey Quezada MD [address] [facility],[address], [place], [address], [facility] - [facility], 10/07/2020 12:11:27 10/07/2021 text/html She is here for annual exam, is doing well. Mirena placed 10/2017. She notes that she has decided to get permanent sterilization because she is concerned about the political climate and worries she may not be able to get a new IUD in the future. _ Note from 2020: She is here for annual exam. Mirena placed 11/16. Menses light. 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 Stacey Quezada MD [address] [facility],[place] [address], [place], [address], [facility] - [facility], 10/07/2021 15:20:27 03/20/2022 text/html This visit is a phone telehealth visit. The patient consented to the visit by phone. The patient was at home at the time of the call and the provider and patient were the only people on the line. I was at [address] [place] [address], [address], at the time of the call. She had a Mirena placed in 2017, and typically has a light bleeding for a day or two, each month. This last menses however began on 03/20/22 (today) and is heavy, with dark and red blood, which is very unusual for her. No cramping, no pain. Stacey Quezada MD [address] [facility],[place] [address], [place], [address], [facility] - [facility], 03/20/2022 13:16:23 04/05/2023 text/html She is here for annual, she had a bilateral salpingectomy for control, last July, and the IUD was removed then. Her has the flu although he has not tested for influenza, he has been sick for 3 days, he tested negative for covid 2 days ago has not retested. He works from home. She notes the kids or she may have brought it home however they are not feeling ill. note from 2021: She is here for annual exam, is doing well. Mirena placed 10/2017.She notes that she has decided to get permanent sterilization because she is concerned about the political climate and worries she may not be able to get a new IUD in the future. Stacey Quezada MD [address] [facility],[address], [place], [address], [place] - [facility], 04/05/2023 10:20:59 OBGyn Episode No OBEpisode recorded.
[2024-04-17 14:04] VITALS: BP 160/110
== END 2024-04-17 14:14 | disposition home or self-care (01) ==
DX: R03.0 Elevated blood-pressure reading, without diagnosis of hypertension (principal); Z13.220 Encounter for screening for lipoid disorders; F90.9 Attention-deficit hyperactivity disorder, unspecified type; F32.A Depression, unspecified

== ENCOUNTER → 2024-04-17 13:28 | Outpatient (BNVA) | payer OTHER, SELFPAY | DX: R03.0 Elevated blood-pressure reading, without diagnosis of hypertension (principal); F90.9 Attention-deficit hyperactivity disorder, unspecified type; F32.A Depression, unspecified | CPT/HCPCS: 96127 ==

== ENCOUNTER 2024-05-22 13:28 | Outpatient (AMB) | payer OTHER, SELFPAY ==
--- NOTE | 2024-05-22 13:36 | MHC.PC.OV ---
Vital Signs 05/22/24 13:37 05/22/24 13:50 Height 5 ft 7 in Weight 219 lb 6 oz BMI 34.4 BP 142/80 H 150/88 H Blood Pressure Location Lt brachial Lt brachial Position Sitting Sitting Pulse 101 H 92 Pulse Source Pulse Oximeter Pulse Oximeter Temp 97.1 F Temp Source Temporal Artery Scan Pulse Oximetry (%) 97 Oxygen Delivery Method Room Air Intake Visit Reasons: f/u HTN Intake Note: Patient is here to follow up on HTN. Business Continuity Planner Required: No Manager Deli: Not Required per policy Accompanied by: Self / Same As Patient Allergies Milk Containing Products (Dairy) Allergy (Mild, Verified 05/22/24 13:37) stomach ache Medication List - Last Reconciled 05/22/24 by Caity Qiu PA-C fluticasone propionate 50 mcg/actuation 1 spray intranasal DAILY lisdexamfetamine 20 mg PO DAILY melatonin 10 mg PO BEDTIME PRN Tobacco use date assessed: 05/22/24 Dental Screening Dental Screen Date: 04/17/24 HPI f/u HTN HPI Details 43-year-old female with past medical history ADHD, depression and elevated blood pressure last seen 04/2024 coming in for follow up on blood pressure. Patient has been monitoring her blood pressure at home with cuff which has been elevated however unsure if using cuff correctly. She recently had blood work done through [facility]. She reports inconsistent blood pressure readings at home, some reaching as high as 190 mmHg systolic, raising concerns about hypertensive urgency. She does not have associated symptoms with her elevated blood pressure readings and lives an active lifestyle. [facility] Medical History MTHFR mutation Depression Endocarditis Obesity, class 2 ADHD Surgical History History of heart valve repair History of bilateral salpingectomy Family History Mother Breast cancer Social History Housing: House Patient Tobacco Use Status: Never used Tobacco e-Cigarette/Vaping Use: Never Used Second Hand Smoke Exposure: No service: No Current occupational status: employed Cognitive needs: No Hearing needs: No Vision needs: No Questionnaire Thrive Questionnaire Date Thrive assessed: 04/17/24 I am a: Patient What is your living situation today?: I have a steady place to live Within the past 12 months, did the food you bought not last and you didn't have the money to get more?: I choose not to answer this question Within the past 12 months, did you worry whether your food would run out before you got money to buy more?: I choose not to answer this question Do you have trouble paying for medicines?: I choose not to answer this question Do you have trouble getting transportation to medical appointments?: No Do you have trouble paying your heating and electricity bill?: I choose not to answer this question Do you have trouble taking care of your child, family member or friend?: No Do you have trouble with day-to-day activities such as bathing, preparing meals, shopping, managing finances, etc.?: No Are you currently unemployed and looking for a job?: No Are you interested in more education?: No Please select the resources that you would like help with: None Currently or been in a relationship where the following occur: No concerns reported THRIVE Score: 0 DALI-7 AMB Questionnaire DALI-7 Date DALI - 7 assessed: 04/17/24 Source: Developed by Drs. Jean Pierre Ojeda, Sahra Green, Angel Reynaga and colleagues, with an educational airam from [employer].. Review of Systems Const Denies body aches, Denies chills, Denies fever(s), Denies headache(s) and Denies poor appetite Eyes Reports no additional complaints ENT Denies dizziness and Denies headache(s) Card Denies chest pain, Denies syncope, Denies irregular heart rhythm, Denies lightheadedness and Denies dyspnea Resp Denies cough and Denies dyspnea GI Reports no additional complaints Reports no additional complaints Musc Reports no additional complaints and Denies abnormal gait Skin/Breast Reports system reviewed and no additional complaints, except as documented Neuro Denies abnormal gait, Denies dizziness, Denies syncope and Denies headache(s) Psych Reports no additional complaints Physical exam (Primary Care) Tobacco/Smoking Status: Tobacco use Status Tobacco use date assessed 04/17/24 04/17/24 13:36 Patient Tobacco Use Status Never used Tobacco 04/17/24 13:36 Tobacco use type 04/17/24 14:13 e-Cigarette/Vaping Use Never Used 04/17/24 13:36 Thrive Assessment: Date of Thrive Assessment Date Thrive assessed 04/17/24 04/17/24 13:33 Currently or been in a relationship where the following occur: No concerns reported Const General: cooperative, healthy appearing, comfortable and no acute distress Orientation/consciousness: patient oriented x3 HENMT Head: Yes normocephalic Ears: hearing grossly normal bilaterally General nose exam: Normal external nose present Eyes General: appearance normal, both eyes and all related structures Conjunctivae: conjunctivae normal Neck Neck: Yes full ROM and Yes no lymphadenopathy Resp Effort & Inspection: normal respiratory effort Auscultation: clear to auscultation bilaterally, no crackles, no rales, no rhonchi and no wheezes Cardio Rate: regular rate Rhythm: regular rhythm Skin General skin exam: no rashes or lesions noted Neuro General: patient oriented x3 Gait exam (Neuro): Normal gait present Extrem General: Yes normal to inspection, Yes full ROM and No edema Psych Affect: normal affect Attitude: cooperative Insight: Good insight present (Psych) Judgement: Good judgement present (Psych) Coding Level of Care Code Est Pt Level 4 (14232) Diagnoses Elevated blood pressure reading without diagnosis of hypertension R03.0 ADHD F90.9 Vitamin D deficiency E55.9 Assessment & Plan Assessment & Plan (1) Elevated blood pressure reading without diagnosis of hypertension: Code(s): R03.0 - Elevated blood-pressure reading, without diagnosis of hypertension Category: Medical Plan: I have decided to initiate treatment for the patient's essential hypertension with Amlodipine, starting at 5 mg daily, due to persistently elevated blood pressures. This course of treatment considers her recent systolic readings in the 150s, and I have chosen Amlodipine for its efficacy. The patient must watch for side effects, specifically leg swelling, and notify me if it occurs so we can reassess her medication options. I suggest exploring instructional videos to improve the accuracy of her home blood pressure measurements, aiding in better management of her condition. (2) ADHD: Comment: psychiatrist Ramana Murray every few months - 2024 Code(s): F90.9 - Attention-deficit hyperactivity disorder, unspecified type Category: Medical Plan: Continue to follow with psychiatrist. (3) Vitamin D deficiency: Code(s): E55.9 - Vitamin D deficiency, unspecified Category: Medical Plan Reviewed most recent blood work which was within normal limits with the exception of mildly low Vitamin D levels. This note was constructed using voice recognition software. While every effort has been made to ensure accuracy and financial systems administrator, still areas may have been included sometimes these areas may affect the content or meeting of the given symptoms. Total time spent caring for the patient today was 20 minutes. This includes time spent before the visit reviewing the chart, time spent during the visit, and time spent after the visit and documentation. Patient was informed and verbally consented to the use of an ambient scribe for clinic note documentation during this visit. Medications: New amlodipine 5 mg PO DAILY 60 tabs 1RF
[2024-05-22 13:37] VITALS: BP 142/80; PULSE 101; TEMP 36.2; O2SAT 97; BMI 34.4
[2024-05-22 13:50] VITALS: BP 150/88; PULSE 92
== END 2024-05-22 14:08 | disposition home or self-care (01) ==
LOC: HO.HMCH 13:29
DX: R03.0 Elevated blood-pressure reading, without diagnosis of hypertension (principal); F90.9 Attention-deficit hyperactivity disorder, unspecified type; E55.9 Vitamin D deficiency, unspecified

== ENCOUNTER 2024-07-03 15:27 | Outpatient (AMB) | payer OTHER, SELFPAY ==
--- NOTE | 2024-07-03 15:29 | MHC.PC.OV ---
Vital Signs 07/03/24 15:33 07/03/24 16:21 Height 5 ft 7 in Weight 217 lb 2 oz BMI 34.0 BP 134/90 H 144/96 H Blood Pressure Location Lt brachial Rt brachial Position Sitting Sitting Pulse 80 Pulse Source Pulse Oximeter Temp 97.5 F Temp Source Temporal Artery Scan Pulse Oximetry (%) 96 Oxygen Delivery Method Room Air Intake Visit Reasons: f/u HTN Intake Note: Patient is here to follow up on HTN. Sap Project Manager Required: No Pump Press Operator: Not Required per policy Accompanied by: Self / Same As Patient Allergies Milk Containing Products (Dairy) Allergy (Mild, Verified 07/03/24 15:53) stomach ache amlodipine Adverse Reaction (Intermediate, Verified 07/03/24 15:53) Muscle Pain Medication List - Last Reconciled 07/03/24 by Caity Qiu PA-C atenolol 25 mg PO DAILY fluticasone propionate 50 mcg/actuation 1 spray intranasal DAILY lisdexamfetamine 20 mg PO DAILY melatonin 10 mg PO BEDTIME PRN Tobacco use date assessed: 07/03/24 Dental Screening Dental Screen Date: 04/17/24 HPI f/u HTN HPI Details 43-year-old female with past medical history ADHD, depression and elevated blood pressure last seen 04/2024 coming in for follow up on blood pressure.? Presenting with hypertension. Previous adverse reaction to amlodipine included severe muscle tension and headaches. Currently well-tolerating atenolol with administration at night to avoid potential side effects. Blood pressure readings at home have been inconsistent due to equipment issues. Medical History includes early-onset endocarditis leading to mitral valve repair, post-operative management included daily aspirin. In-clinic blood pressure measurements remain elevated despite current management. [facility] Medical History MTHFR mutation Depression Endocarditis Obesity, class 2 ADHD Surgical History History of heart valve repair History of bilateral salpingectomy Family History Mother Breast cancer Social History Housing: House Patient Tobacco Use Status: Never used Tobacco e-Cigarette/Vaping Use: Never Used Second Hand Smoke Exposure: No service: No Current occupational status: employed Cognitive needs: No Hearing needs: No Vision needs: No Questionnaire Thrive Questionnaire Date Thrive assessed: 07/03/24 I am a: Patient What is your living situation today?: I have a steady place to live Within the past 12 months, did the food you bought not last and you didn't have the money to get more?: I choose not to answer this question Within the past 12 months, did you worry whether your food would run out before you got money to buy more?: I choose not to answer this question Do you have trouble paying for medicines?: I choose not to answer this question Do you have trouble getting transportation to medical appointments?: No Do you have trouble paying your heating and electricity bill?: I choose not to answer this question Do you have trouble taking care of your child, family member or friend?: No Do you have trouble with day-to-day activities such as bathing, preparing meals, shopping, managing finances, etc.?: No Are you currently unemployed and looking for a job?: No Are you interested in more education?: No Please select the resources that you would like help with: None Currently or been in a relationship where the following occur: No concerns reported THRIVE Score: 0 AUDIT C Alcohol Use Questionnaire (AUDIT-C) 1. How often do you have a drink containing alcohol?: Monthly or less 2. How many drinks containing alcohol do you have on a typical day when you are drinking?: 1 or 2 Total Score: 1 DALI-7 AMB Questionnaire DALI-7 Date DALI - 7 assessed: 04/17/24 Source: Developed by Drs. Jean Pierre Ojeda, Sahra Green, Angel Reynaga and colleagues, with an educational airam from [employer]. Review of Systems Const Denies body aches, Denies chills, Denies fever(s), Denies headache(s) and Denies poor appetite Eyes Reports no additional complaints ENT Denies dizziness and Denies headache(s) Card Denies chest pain, Denies lightheadedness and Denies dyspnea Resp Denies dyspnea GI Denies nausea and Denies vomiting Reports no additional complaints Musc Reports no additional complaints and Denies abnormal gait Skin/Breast Reports system reviewed and no additional complaints, except as documented Neuro Denies abnormal gait, Denies dizziness and Denies headache(s) Psych Reports no additional complaints Physical exam (Primary Care) Vital Signs: Last Vital Signs Temp 97.5 F 07/03/24 15:33 Pulse 80 07/03/24 15:33 BP 134/90 H 07/03/24 15:33 Pulse Ox 96 07/03/24 15:33 Oxygen Delivery Method Room Air 07/03/24 15:33 BMI result Body Mass Index 34.0 Tobacco/Smoking Status: Tobacco use Status Tobacco use date assessed 07/03/24 07/03/24 15:40 Patient Tobacco Use Status Never used Tobacco 07/03/24 15:40 Tobacco use type 04/17/24 14:13 e-Cigarette/Vaping Use Never Used 07/03/24 15:40 Thrive Assessment: Date of Thrive Assessment Date Thrive assessed 07/03/24 07/03/24 15:40 Currently or been in a relationship where the following occur: No concerns reported Const General: cooperative, healthy appearing, comfortable and no acute distress Orientation/consciousness: patient oriented x3 HENMT Head: Yes normocephalic Ears: hearing grossly normal bilaterally General nose exam: Normal external nose present Eyes General: appearance normal, both eyes and all related structures Conjunctivae: conjunctivae normal Neck Neck: Yes full ROM and Yes no lymphadenopathy Resp Effort & Inspection: normal respiratory effort Auscultation: clear to auscultation bilaterally, no crackles, no rales, no rhonchi and no wheezes Cardio Rate: regular rate Rhythm: regular rhythm Skin General skin exam: no rashes or lesions noted Neuro General: patient oriented x3 Gait exam (Neuro): Normal gait present Extrem General: Yes normal to inspection, Yes full ROM and No edema Psych Affect: normal affect Attitude: cooperative Insight: Good insight present (Psych) Judgement: Good judgement present (Psych) Coding Level of Care Code Est Pt Level 3 (85496) Diagnoses ADHD F90.9 Vitamin D deficiency E55.9 Hypertension I10 Assessment & Plan Assessment & Plan (1) ADHD: Comment: psychiatrist Ramana Murray every few months - 2024 Code(s): F90.9 - Attention-deficit hyperactivity disorder, unspecified type Category: Medical Plan: Continue to follow with psychiatrist. (2) Vitamin D deficiency: Code(s): E55.9 - Vitamin D deficiency, unspecified Category: Medical Plan: Patient has been taking supplementation and doing well on this. (3) Hypertension: Code(s): I10 - Essential (primary) hypertension Category: Medical Plan: Plan to increase atenolol to 25 mg b.i.d. for better management of blood pressure. I referred the patient to nurse navigation specialists for blood pressure check in 3 weeks and plan to follow up in the office in 6 weeks. If blood pressure remains uncontrolled can consider referral to Nephrology and/or renal ultrasound. Avoid salt intake and encourage healthy diet and regular exercise. I reviewed with patient red flag symptoms and when to present for re-evaluation Plan I recommended increasing atenolol to 25 mg taken twice daily due to current uncontrolled hypertension, while monitoring for side effects. Baby aspirin will continue following cardiological advice. The patient will receive assistance from a nurse navigation specialist regarding faulty blood pressure equipment and will follow up in six weeks for re-evaluation of blood pressure levels. Future interventions may include renal assessment if needed. This note was constructed using voice recognition software. While every effort has been made to ensure accuracy and pets and pet supplies salesperson, still areas may have been included sometimes these areas may affect the content or meeting of the given symptoms. Total time spent caring for the patient today was 20 minutes. This includes time spent before the visit reviewing the chart, time spent during the visit, and time spent after the visit and documentation. Patient was informed and verbally consented to the use of an ambient scribe for clinic note documentation during this visit. Medications: Changed From atenolol 25 mg PO DAILY 30 tabs 0RF To atenolol 25 mg PO BID 60 tabs 0RF Refilled atenolol 25 mg PO BID 60 tabs 1RF
[2024-07-03 15:33] VITALS: BP 134/90; PULSE 80; TEMP 36.4; O2SAT 96; BMI 34.0
[2024-07-03 16:21] VITALS: BP 144/96
--- OUTSIDE RECORDS SUMMARY | 2024-07-03 17:03 | XMS_ITS | Data Portability ---
Author Organization [place] [facility],, STACEY QUEZADA MD Address [address] [address] Care Team Providers Care Javascript Software Engineer Name Role Phone MEKHI VIDALES Primary Care Provider [phone] Assessment No assessment recorded. Plan of Treatment Reminders Order Date Submit Date Provider Last Modified By Organization Details Last Modified Time Details Appointments ANNUAL EXAM 2025 10:00A M Stacey Quezada MD Not available Not available Not available Lab cytology report, thin prep, smear or scraping , cervical or vaginal 2024 025 KRYSTINA [facility] (Centralized Electronic Ordering - All Locations), Patient Can Go To The Location Of Their Choice, [id number] 04/28/2024 16:16:02 hemoglob in, gastroin testinal , stool 2024 025 [email or web address] 1 In-Office Order, Internal Use Only DO Not Attach Compendium DO Not Attach Compendium, Do Not Delete/merge, [id number] 04/26/2024 10:12:27 pap test, thinprep , cervical 2023 024 [email or web address] [facility] (Centralized Electronic Ordering - All Locations), Patient Can Go To The Location Of Their Choice, [id number] 04/12/2023 07:48:33 beta-HCG , qualitat melody, serum or plasma 2022 023 KRYSTINA [facility] (Centralized Electronic Ordering - All Locations), Patient Can Go To The Location Of Their Choice, [id number] 03/20/2022 22:29:30 pap test, thinprep , cervical 2021 022 [facility], Cytopathology Service, [address] [place], [address], 10/14/2021 08:24:06 fecal occult blood, stool 2021 022 [email or web address] 1 In-Office Order, Internal Use Only DO Not Attach Compendium DO Not Attach Compendium, Do Not Delete/merge, [id number] 10/07/2021 13:57:37 pap test, thinprep , cervical 2020 021 [facility], Cytopathology Service, [address] [place], [address], 10/14/2020 09:46:51 [email or web address] a sp, culture, unspecif ied specimen 2020 021 [facility], Cytopathology Service, [address] [place], [address], 10/14/2020 09:46:51 NG DNA, PCR, genital 2020 021 [facility], Cytopathology Service, [address] [place], [address], 10/14/2020 09:46:51 Referral [facility] surgery referral - desire for permanen t steriliz ation. Has IUD in at this time, needs to stay in for history of menorrha lulu 2021 022 [facility] [employer], [address] , [facility] [address], [place], [address], 01/25/2022 16:26:51 Procedures None recorded . Surgeries None recorded . Imaging MAMMO, screenin g, digital, bilatera l - Breast Aspirati on and/or Biopsy if needed 2024 025 [facility] Imaging Orders, [address], [place], [address], 04/26/2024 11:51:32 MAMMO, screenin g, digital, bilatera l - Breast Aspirati on and/or Biopsy if needed 2023 024 [email or web address] [facility] Imaging Orders, [address], [address], [place], [address], 03/30/2024 07:18:04 MAMMO, screenin g, digital, bilatera l 2021 022 KRYSTINA [facility], [address], [place], [address], 12/16/2021 16:50:58 Medication Orders None recorded . Patient TargetsNo targets recorded. Patient Instructions Encounter Date Encounter Id Patient Instructions Last Modified By Organization Details Last Modified Time 10/07/2020 [id number] learning about healthy weight Not available 10/07/2020 [...] new masses. Not available 10/07/2020 12:10:55 10/07/2021 [id number] learning about healthy weight Not available 10/07/2021 [...] the breast. Not available 10/07/2021 15:20:06 03/20/2022 [id number] heavy menstrual periods: care instructions Not available 03/20/2022 12:58:43 secondary amenorrhea: care instructions Not available 03/20/2022 12:56:41 This visit is a phone telehealth visit. The patient consented to the visit by phone. The patient was at home at the time of the call and the provider and patient were the only people on the line. I was at [address] [place] [address], [address], [place], [place], at the time of the call. She had a Mirena placed in 2018, and typically has a light bleeding for [...] evaluation. Face to face discussion 20 [email or web address] Not available 03/20/2022 13:05:48 04/05/2023 [id number] learning about healthy weight Not available 04/05/2023 [...] in the breast. Not available 04/05/2023 10:20:26 04/26/2024 [id number] learning about healthy weight Not available 04/26/2024 10:12:27 She is her for annual, s/p BTL, doing well. Menses are heavy first 2 days, menses every 3 weeks, does not feel she wants intervention at this time. Will be getting PCP blood work soon including thyroid. Note from 2023: She is here for annual, she had [...] home however they are not feeling ill. She appears to be doing well. Monthly self breast exam was taught, and stressed, and is advised to call if she discovers any new mass in the breast. Not available 04/26/2024 10:12:42 Reason for Referral Gynecologic Surgery Referral for Sterilization requested desire for permanent sterilization. Has IUD in at this time, needs to stay in for history of menorrhagia Referring Physician: Stacey Quezada, Gynecology, Encounter Date: 10/07/2021 Results Created Date Observation Date Name Description Value Unit Range Abnormal Flag Note LastModifiedBy Organization Detail LastModifiedTime 10/08/19 21 10/07/2020 GENER AL5CA SE [id number] Chlam ydia: NEGAT MELODY N. gonlisset rhoseven e: NEGAT MLEODY Compl eted on 10-08 CLINI FAHEEM INFOR MATIO N: Routi ne exam. LPS 0 NEG [Z01. 419, Z11.3 ] SOURC E: ThinP rep Pap for CT/GC Gross Descr iptio n: ThinP rep Vial Recei cameron. Physi cians MICHAEL DINH/ [phone] Not Available [facility], Cytopathology Service [address] [place], [address], 10/09/2020 09:35:36 10/08/19 21 10/07/2020 PAP1C ASE [id number] ThinP rep Pap, Image d: NEGAT MELODY FOR SQUAM OUS INTRA EPITH ELIAL FELICITY Sánchez AND DOMITILA MCMANUS . Mayuri Pettit , CT( CP) (Case elect starr dakota alice d 10 09 2020) ADEQU ACY: Satis facto ry Endoc ervic al/tr ansfo rmati on zone compo nent absen t. SOURC E: ThinP rep Pap HPV IF ASCUS , Cervi faheem, Image d CLINI FAHEEM INFOR MATIO N: HPV If Diagn osis of ASCUS . LPS 8/5/2 0 NEG [Z12. 4, Z01.4 19] Not Available [facility], Cytopathology Service [address] [place], [address], 10/09/2020 14:17:18 10/08/19 22 10/07/2021 PAP1C ASE [id number] ThinP rep Pap, Image d: NEGAT MELODY [...] osis of ASCUS . Z12.4 Not Available [facility], Cytopathology Service [address] [place], [address], 10/13/2021 15:25:57 10/08/19 22 10/07/2021 fecal occul t blood , stool Occult Blood negati ve Not Available In-Office Order Internal Use Only DO Not Attach Compendium DO Not Attach Compendium, Do Not Delete/merge, [id number] 10/07/2021 10:44:17 03/20/19 23 03/20/2022 HCG PLUS [...] h restr ictio n. Not Available [facility] (Centralized Electronic Ordering - All Locations) Patient Can Go To The Location Of Their Choice, [id number] 03/20/2022 22:29:29 04/05/19 24 04/05/2023 [facility] results Patishazia nt Name: SHRADDHA CURTIS nt : 1980 (Age: 42) Lab Acces matt #: [id number] Colle ction Date: Acces matt Date: 024 Sign Out Date: Tissu e Sourc e: 1: THINP REP PSYCHOLOGIST CLINICAL PAP TEST, CERVI FAHEEM: Final Diagn osis: [...] rep Imagi ng Syste m with steve bender or noemi cortez. Perfo rmed at [facility] ate Refer ence [facility] Cytol o[facility], [address] [place] Clini faheem Histo ry (othe r): Z01.4 19, ROUTI NE SCREE N, LPS 10/07 Phone #: [phone], On-[place] ll Patho logis t: [id number] Not Available [facility] (Centralized Electronic Ordering - All Locations) Patient Can Go To The Location Of Their Choice, [id number] 04/09/2023 14:36:25 04/26/19 25 04/28/2024 IGP, RFX APTIM A HPV ASCU diagnosis: Farooq OLIVER FOR INTRA EPITH ELIAL FELICITY Sánchez OR DOMITILA MCMANUS . Not Available [facility] ([facility]) [address] [place], [address], 04/28/2024 16:16:02 04/26/1904/28/2024 IGP, RFX APTIM A HPV ASCU specimen adequacy: Farooq josue for evalu ation . Endoc ervic al and/o r squam ous metap lasti c cells (endo cervi faheem compo nent) are prese nt. Not Available [facility] ([facility]) [address] [place], [address], 04/28/2024 16:16:02 04/26/19 25 04/28/2024 IGP, RFX APTIM A HPV ASCU clinician provided ICD10: Farooq hendrickson Z01.4 19 Not Available [facility] ([facility]) [address] [place], [address], 04/28/2024 16:16:02 04/26/19 25 04/28/2024 IGP, RFX APTIM A HPV ASCU performed by: Farooq Post Prior , Cytot black robb t (ASCP ) Not Available [facility] ([facility]) [address] [place], [address], 04/28/2024 16:16:02 04/26/19 25 04/28/2024 IGP, RFX APTIM A HPV ASCU . . Not Available [facility] ([facility]) [address] [place], [address], 04/28/2024 16:16:02 04/26/19 25 04/28/2024 IGP, RFX APTIM A HPV ASCU note: Commen t The Pap smear is a scree kendra test desig lawrence to aid in the detec tion of deandre ligna nt and malig nant condi tions of the uteri ne cervi x. It is not a diagn ostic proce dure and shoul d not be used as the sole means of detec ting cervi faheem cance r. Both false -posi tive and false -nega tive repor ts do occur . Not Available [facility] ([facility]) [address] [place], [address], 04/28/2024 16:16:02 04/26/19 25 04/28/2024 IGP, RFX APTIM A HPV ASCU test methodology: Commen t This liqui d based ThinP rep(R ) pap test was scree lawrence with the use of an image guide d syste m. Not Available [facility] ([facility]) [address] [place], [address], 04/28/2024 16:16:02 04/26/19 25 04/28/2024 IGP, RFX APTIM A HPV ASCU . Commen t The HPV DNA refle x crite bipin were not met with this speci men resul t there fore, no HPV testi ng was perfo rmed. Not Available [facility] ([facility]) [address] [place], [address], 04/28/2024 16:16:02 04/26/19 25 04/26/2024 hemog lobin , gastr ointe beverly l, stool Occult Blood negati ve Not Available In-Office Order Internal Use Only DO Not Attach Compendium DO Not Attach Compendium, Do Not Delete/merge, [id number] 04/26/2024 09:54:54 12/17/19 22 12/16/2021 MAMMO , scree kendra, digit al, bilat eral No observ ation record ed. [facility] [address], [place], [address], 12/17/2021 08:29:10 Result Notes None recorded. Problems Name Problem SNOMED Code Status Onset Date Resolution Date Notes Provider Name and Address Organization Details Recorded Time Lactose intoleranc e Active 2017 Jolie Jauregui [place] mckenna in 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, 8 10:48:04 depression 94229303 Active 2017 Stacey Quezada MD [address], [place], [address], ELZBIETA Alanis in [facility], 8 10:57:52 Dysfunctio nal uterine bleeding Active 2017 Stacey Quezada MD [address], [place], [address], ELZBIETA - Zeke in [facility], 8 11:11:01 Dry eyes 833789364 Active 2020 ELZBIETA Limon in [facility], 1 10:45:28 Problem Notes None recorded. Procedures Surgical History Date Name Laterality Status Provider Name and Address Organization Details Recorded Time 4 Most Recent Mammogram completed Iva Alanis in [facility], 04/26/2024 09:54:02 3 total excision of bilateral fallopian tubes completed Iva Alanis in [facility], 04/05/2023 09:50:35 9 Unlisted px ant segment eye completed Maria Victoria Alanis in [facility], 10/04/2019 10:44:55 8 IUD Insertion completed Stacey Quezada MD [address] [facility],[address], [place], [address], [place] - [facility], 11/19/2017 11:00:27 5 Other completed Iva Harrell [place] [facility], 09/10/2017 14:15:31 4 Other completed Iva Harrell [place] [facility], 09/10/2017 14:14:07 Imaging Results Imaging Date Name Status [facility]Modified by [facility] Details LastModified Time 12/16/2021 MAMMO, screening, digital, bilateral completed [facility] [address], [place], [address], 12/17/2021 08:29:10 Procedure Notes None recorded. Medical Equipment None Reported. Allergies No known drug allergies Medications Name Sig Start Date Stop Date Status Note LastModified by Organization Details LastModified Time amoxicillin 500 mg capsule TAKE 4 CAPSULES BY MOUTH 1 HOUR PRIOR TO APPOINTME NT 04/26 completed Not Available Not Available Not Available Mirena 21 mcg/24 hr (up to 8 years) 52 mg intrauterin e device Take 1 device as needed by intrauter ine route. 04/05 completed Not Available Not Available Not Available fluconazole 100 mg tablet TAKE 1 TABLET BY MOUTH TODAY, MAY REPEAT IN 3 DAYS IF SYMPTOMS PERSIST 04/26 completed Not Available Not Available Not Available acetaminoph en 325 mg tablet TAKE 3 TABLETS BY MOUTH EVERY 6 HOURS NEEDED FOR PAIN 04/26 completed Not Available Not Available Not Available doxycycline hyclate 100 mg capsule 1 [...] Available Not Avail able Not Available 5-HTP 04/26 completed Not Available Not Available Not Available lisdexamfet amine 20 mg capsule [...] Not Available No t Available Flucelvax Quad 2591-6749 (PF) 60 mcg (15 mcg x 4)/0.5 [...] No t Available Vitals Date Recorded Body weight Body mass index (BMI) Body height Heart rate Body temperature Systolic blood pressure Diastolic blood pressure Provider Name and Address Organization Details Last Updated DateTime 1 377889. 68 g 39.3 kg/m2 170.18 cm 88 /min 97.5 [degF] 139 mm[Hg] 99 mm[Hg] Maria Victoria Jain [place] - [facility], 1 10:43:46 Date Recorded Body height Body mass index (BMI) Body weight Body temperature Heart rate Systolic blood pressure Diastolic blood pressure Provider Name and Address Organization Details Last Updated DateTime 2 170.18 cm 37.5 kg/m2 807268. 29 g 98.2 [degF] 99 /min 159 mm[Hg] 97 mm[Hg] Iva Harrell [place] [facility], 2 10:39:28 Date Recorded Body height Provider Name an d Address Organization Details Last Updated DateTime 03/20/2022 170.18 cm Iva pat in [facility], 03/20/2022 12:46:03 Date Recorded Body height Body mass index (BMI) Body weight Heart rate Body temperature Systolic blood pressure Diastolic blood pressure Provider Name and Address Organization Details Last Updated DateTime 4 170.18 cm 34.8 kg/m2 164138. 51 g 95 /min 97.3 [degF] 171 mm[Hg] 113 mm[Hg] Iva Alanis in [facility], 4 09:44:20 Date Recorded Body weight Body mass index (BMI) Body height Body temperature Heart rate Systolic blood pressure Diastolic blood pressure Provider Name and Address Organization Details Last Updated DateTime 5 61083.0 4 g 34 kg/m2 171.45 cm 97.8 [degF] 92 /min 167 mm[Hg] 107 mm[Hg] Iva Alanis in [facility], 5 09:49:50 Social History Question Answer Notes LastModified by Organizat ion Details LastModified Time Tobacco Smoking Status Never Smoker Not Available [employer] 01/02/2020 03:19:43 Do You Have An Advance Directive? No [id number] Information not available 01/02/2020 What Is Your Level Of Alcohol Consumption? Occasional Information not available 10/07/2020 How Many Years Have You Consumed Alcohol? 20 Information not available 10/07/2021 What Is Your Level Of Caffeine Consumption? Occasional Information not available 10/07/2021 How Much Tobacco Do You Chew? None [id number] Information not available 01/02/2020 In The 14 Days Before Symptom Onset, Have You Had Close Contact With A Laboratory-confir med COVID-19 While That Case Was Ill? No [id number] Information not available 01/02/2020 In The 14 Days Before Symptom Onset, Have You Had Close Contact With A Person Who Is Under Investigation For COVID-19 While That Person Was Ill? No [id number] Information not available 01/02/2020 Have You Been To An Area Known To Be High Risk For COVID-19? No [id number] Information not available 01/02/2020 Are You Currently Employed? Yes Information not available 04/26/2024 What Type Of Diet Are You Following? REGULAR [id number] Information not available 01/02/2020 Which Illicit Or Recreational Drugs Have You Used? No [id number] Information not available 01/02/2020 Do You Reside In Or Have You Traveled To An Area Where Ebola Virus Transmission Is Active? No [id number] Information not available 01/02/2020 Do You Or Have You Ever Used E-cigarettes Or Vape? Never Used Electronic Cigarettes [id number] Information not available 01/02/2020 Education 4 Year College Informatio n not available 09/10/2017 What Is The Highest Grade Or Level Of School You Have Completed Or The Highest Degree You Have Received? 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 Information not available 04/26/2024 How Many Days In The Past Year Have You Had A Heavy Drinking Consumption (4+ Female, 5+ Male)? 0 Information no t available 09/10/2017 Are There Any Guns Present In Your Home? No [id number] Information not available 01/02/2020 High Number Of Sexual Partners Yes Information not available 09/10/2017 To Which Gender Do You Self-identify? Female Information not available 09/10/2017 Marital Status Informatio n not available 09/10/2017 What Was The Date Of Your Most Recent Tobacco Screening? 04/26/2024 Information not available 04/26/2024 What Is Your Relationship Status? Information not available 10/07/2020 Seat Belts Used Routinely Yes Information not available 09/10/2017 Are You Sexually Active? Yes Information not available 10/07/2021 Smoke Alarm In Home Yes Information not available 09/10/2017 Do You Or Have You Ever Used Smokeless Tobacco? Never Used Smokeless Tobacco [id number] Information not available 01/02/2020 How Much Tobacco Do You Smoke? No [id number] Information not available 01/02/2020 General Stress Level High Information not available 09/10/2017 Do You Feel Stressed (tense, Restless, Nervous, Or Anxious, Or Unable To Sleep At Night)? [id number] Information not available 10/07/2020 Do You Use Any Illicit Or Recreational Drugs? No Information not available 10/07/2020 Do You Use Sunscreen Routinely? Yes [id number] Information not available 01/02/2020 How Many Years Have You Smoked Tobacco? 0 [id number] Information not available 01/02/2020 Have You Recently (within The Last 12 Weeks, Or During A Current ) Traveled To Or Lived In A Zika-affected Area? No Information not available 09/10/2017 Do You Or Have You Ever Used Any Other Forms Of Tobacco Or Nicotine? No Information not available 04/26/2024 How Many Days In The Past Year Have You Consumed 4 Or More Drinks? 0 Information no t available 10/07/2021 Sex: Female Functional Status Question Answer Note LastModified by Organizat ion Details LastModified Time What is your exercise level? Occasional [id number] Information not available 01/02/2020 Mental Status None [...] available 2017 14:11:33 Medical History Condition Response High Blood Pressure N Autoimmune Condition N Depression Y History of Ovarian Cancer N Anxiety Disorder Y Arthritis Y Infertility N Kidney or Bladder Problems N Osteopenia N Asthma N Hepatitis N Anesthesia complications Y Candidate for MyRisk panel N Lung Disease N Defects or Inherited Disease N BRCA testing in past N History of Cancer N Endometriosis N Thyroid Problems N GI Problems N Anemia N History of Breast Cancer N MARYA exposure N Psychiatric Illness N Diabetes N Headaches or Migraines N Heart Disease Y Hypertension N Osteoporosis N Gynecological History Statement/Question Response Dysmenorrhea N Flow Heavy Date of LMP 04/03/2024 Frequency of Cycle (Q days) 21 Menses Monthly Y Duration of Flow (days) 5 Age at Menarche 12 Current Control Method Sterilizati on Most Recent Mammogram 12/17/2023 Age at First Child 32 Obstetrics History GPAL:G 2 P 2 0 0 2 Type Value Full Term 2 Living 2 Total 2 Immunizations Vaccine Type Date Status Note Provider Nam e and Address Organization Details Recorded Time Tdap 01/27/2017 completed Iva Meczywor bala [place] Deonte Alanis in [facility], 04/05/2023 09:58:51 COVID-19, mRNA, LNP-S, PF, 30 mcg/0.3 mL dose 06/11/2020 completed Iva Meczywor null [place] [facility], 04/05/2023 09:58:51 influenza nasal, unspecified formulation 02/19/2022 completed Iva Meczywor null [place] [facility], 04/05/2023 09:58:51 Influenza, MDCK, quadrivalent, PF 01/27/2017 completed Iva Meczywor null [place] [facility], 04/05/2023 09:58:51 Influenza, MDCK, quadrivalent, PF 02/11/2020 completed Iva Meczywor null [place] [facility], 04/05/2023 09:58:51 COVID-19, mRNA, LNP-S, PF, 100 mcg/0.5mL dose or 50 mcg/0.25mL dose 02/01/2021 completed Iva Meczywor null [place] [facility], 04/05/2023 09:58:51 COVID-19, mRNA, LNP-S, PF, 30 mcg/0.3 mL dose 07/02/2020 completed Iva Meczywor null [place] [facility], 04/05/2023 09:58:51 COVID-19, mRNA, LNP-S, bivalent, PF, 30 mcg/0.3 mL dose 12/05/2021 completed Iva Meczywor null [place] [facility], 04/05/2023 09:58:51 Influenza, split virus, quadrivalent, PF 03/06/2022 completed Iva Meczywor null, [place] [facility], 04/05/2023 09:58:51 Influenza, MDCK, quadrivalent, PF 11/28/2022 completed Iva Meczywor null, [place] [facility], 04/26/2024 09:49:08 COVID-19, mRNA, LNP-S, PF, derek-sucrose, 30 mcg/0.3 mL 11/28/2022 completed Iva Meczywor null, [place] [facility], 04/26/2024 09:49:08 Past Encounters Encounter ID Performer Location Encounter Start Date Encounter Closed Date Diagnosis/Indication Diagnosis SNOMED-CT Code Diagnosis ICD10 Code Diagnosis Note [id number] MD STACEY Olmstead MD [address] [place] [address],[address] [place] [address] 09/10/2017 13:54:02 09/10/2017 15:31:34 Specialized medical examination 35436710 Z01.419 Venereal d isease screening 178939000 Z11.3 [id number] MD STACEY Olmstead MD [address] [place] [address],[address] [place] [address] 10/08/2017 14:17:18 10/08/2017 14:54:26 [id number] MD STACEY Olmstead MD [address] [place] [address],[address] [place] [address] 11/05/2017 10:51:42 11/05/2017 11:52:17 [id number] MD STACEY Olmstead MD [address] [facility],[address] [place] [address] 11/19/2017 10:20:14 11/19/2017 14:59:33 Insertion of intrauterine contraceptive device 59532446 Z30.430 [id number] MD STACEY Olmstead MD [address] [place] [address],[address] [place] [address] 12/17/2017 10:29:52 12/17/2017 14:16:30 depression 14211780 F53.0 [id number] MD STACEY Olmstead MD [address] [place] [address] [place] [address] 01/28/2018 10:44:38 01/28/2018 14:15:49 depression 92366903 F53.0 Dysfunctio nal uterine bleeding 34082386 N93.8 [id number] MD STACEY Olmstead MD [address] [place] [address],[facility] [place] [address] 03/04/2018 10:39:54 03/04/2018 14:19:37 depression 28620793 F53.0 Dysfunctio nal uterine bleeding 68823613 N93.8 [id number] MD STACEY Olmstead MD [address] [place] [address],[facility] [place] [address] 09/28/2018 10:38:35 09/28/2018 11:48:57 Specialized medical examination 68652043 Z01.419 Venereal d isease screening [id number] Z11.3 [id number] MD STACEY Olmstead MD [address] [place] [address],[facility] [place] [address] 10/04/2019 10:37:22 10/04/2019 11:55:40 Specialized medical examination [id number] Z01.419 Venereal d isease screening [id number] Z11.3 [id number] MD STACEY Olmstead MD [address] [place], [place] [address] [address] 10/07/2020 10:40:14 10/07/2020 13:43:11 Specialized medical examination [id number] Z01.419 Venereal d isease screening [id number] Z11.3 [id number] MD STACEY Olmstead MD [address] [place] [address],[place] [address] 10/07/2021 10:35:58 10/07/2021 15:34:36 Specialized medical examination [id number] Z01.419 Screening for malignant neoplasm of rectum 151292637 Z12.12 Screening mammography 24 405446 Z12.31 Sterilizat ion requested [id number] Z30.2 [id number] MD STACEY Olmstead MD [address] [facility] [place] [address] 03/20/2022 12:45:45 03/20/2022 13:43:58 Amenorrhea [id number] N91.2 Menorrhagia [id number] N9 2.0 [id number] MD STACEY Olmstead MD [address] [facility], [address] [place] [address] 04/05/2023 09:37:02 04/05/2023 13:48:31 Specialized medical examination [id number] Z01.419 Screening for malignant neoplasm of rectum [id number] Z12.12 Screening mammography 24 071630 Z12.31 [id number] MD STACEY Olmstead MD [address] [facility], [place] [address] 04/26/2024 09:45:09 04/26/2024 11:51:32 Specialized medical examination [id number] Z01.419 Screening for malignant neoplasm of rectum [id number] Z12.12 Screening mammography 24 671130 Z12.31 Health Concerns Section Related Observation LastModified by Organization Detai ls LastModified Time None Recorded Concern Status LastModified by Organization Details LastModified Time None Recorded Advance Directives Directive N: Payers Encounter Date Sequence Insurance Name Policy Number Policy Lopez Covered Member ID Lopez Member ID Guarantor Name 10/07/2020 1 [employer] - OPEN ACCESS PLUS [id number] Harris Galvez [id number] Marlee Alonzoicker 10/07/2021 1 [employer] - OPEN ACCESS PLUS [id number] Harris Galvez [id number] Marlee Alonzoicker 03/20/2022 1 [employer] - OPEN ACCESS PLUS [id number] Harris Galvez [id number] Marlee Alonzoicker 04/05/2023 1 [employer] - OPEN ACCESS PLUS [id number] Harris Galvez [id number] 2 Marlee Alonzoicker 04/26/2024 1 [employer] - OPEN ACCESS PLUS [id number] Harris Galvez [id number] Marlee Galvez Notes Date Note Type Note Provider Name and Address Organization Details Recorded Time 10/07/2020 text/html She is here for annual exam. Mirena placed 11/16. Menses light. 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 Stacey Quezada MD [address] [facility],[address], [place], [address], [facility], 10/07/2020 12:11:27 10/07/2021 text/html She is here [...] at home mom. Stacey Quezada MD [address] [facility],[address], [place], [address], [place] [facility], 10/07/2021 15:20:27 03/20/2022 text/html This visit is a phone telehealth visit. The patient consented to the visit by phone. The patient was at home at the time of the call and the provider and patient were the only people on the line. I was at [address] [place] [address], [address] [facility], [place], at the time of the call. She had a Mirena placed in 2017, and typically has a light bleeding for a day or two, each month. This last menses however began on 03/20/22 (today) and is heavy, with dark and red blood, which is very unusual for her. No cramping, no pain. Stacey Quezada MD [address] [facility],[address], [place], [address], [place] [facility], 03/20/2022 13:16:23 04/05/2023 text/html She is here [...] in the future. Stacey Quezada MD [address] [facility],[address], [place], [address], [place] [facility], 04/05/2023 10:20:59 04/26/2024 text/html She is her efor annual, s/p BTL, doing well. Menses are heavy first 2 days, menses every 3 weeks, does not feel she wants intervention at this time. Will be getting PCP blood work soon including thyroid. Note from 2023: She is here for annual, she had a bilateral salpingectomy for control, last July, and the IUD was removed then.She is no menses now, is aware that pap may not be readable, I'm here, now she notes, she prefers to not reschedule.Her has the flu although he has not tested for influenza, he has been sick for 3 days, he tested negative for covid 2 days ago has not retested. He works from home. She notes the kids or she may have brought it home however they are not feeling ill. Stacey Quezada MD [address], [place], [address], [place] [facility], 04/26/2024 10:13:32 OBGyn Episode No OBEpisode recorded.
== END 2024-07-03 16:12 | disposition home or self-care (01) ==
LOC: HO.HMCH 15:28
DX: F90.9 Attention-deficit hyperactivity disorder, unspecified type (principal); E55.9 Vitamin D deficiency, unspecified; I10 Essential (primary) hypertension

== ENCOUNTER 2024-08-14 10:58 | Outpatient (AMB) | payer OTHER, SELFPAY ==
[2024-08-14 11:13] VITALS: BP 160/110; PULSE 89; TEMP 36.3; O2SAT 97; BMI 33.8
--- NOTE | 2024-08-14 11:13 | A.OFFPC_ITS ---
Vital Signs 08/14/24 11:13 08/14/24 11:42 Height 5 ft 7 in Weight 216 lb 2 oz BMI 33.8 BP 160/110 H 158/102 H Blood Pressure Location Lt brachial Lt brachial Position Sitting Sitting Pulse 89 Pulse Source Pulse Oximeter Temp 97.3 F Temp Source Temporal Artery Scan Pulse Oximetry (%) 97 Oxygen Delivery Method Room Air Intake Visit Reasons: f/u HTN Intake Note: Patient is here to follow up on HTN. Maternity Floor Supervisor Required: No Real Estate Financial Analyst: Not Required per policy Accompanied by: Self / Same As Patient Allergies Milk Containing Products (Dairy) Allergy (Mild, Verified 08/14/24 11:33) stomach ache amlodipine Adverse Reaction (Intermediate, Verified 08/14/24 11:33) Muscle Pain Medication List - Last Reconciled 08/14/24 by Caity Qiu PA-C atenolol 25 mg PO BID fluticasone propionate 50 mcg/actuation 1 spray intranasal DAILY lisdexamfetamine 50 mg PO DAILY melatonin 10 mg PO BEDTIME PRN Tobacco use date assessed: 08/14/24 Dental Screening Dental Screen Date: 04/17/24 HPI f/u HTN HPI Details 44-year-old female with past medical his tory ADHD, depression and elevated blood pressure last seen 06/2024 coming in for follow up. Presenting with management of ADHD, hypertension, and concerns regarding breast imaging and foot pain. The patient reports running out of her medication, Atenolol, due to life circumstances and ADHD-related forgetfulness. She has been seeing a psychiatrist and has been slowly increasing the dosage, but feels it may not be at the optimal level yet. The patient has not been taking her atenolol regularly, which has resulted in elevated blood pressure readings. She acknowledges the need to resume her medication and has been provided with additional refills. The patient experiences significant foot pain, particularly after prolonged walking. She has been advised on supportive footwear and e xercises to alleviate symptoms. The patient reports symptoms such as brain fog, anxiety, and hormonal acne, which may indicate perimenopausal changes. [facility] Medical History MTHFR mutation Depression Endocarditis Obesity, class 2 ADHD Surgical History History of heart valve repair History of bilateral salpingectomy Family History Mother Breast cancer Social History Housing: House Alcohol intake: current Alcohol intake frequency: a few times a month Patient Tobacco Use Status: Never used Tobacco e-Cigarette/Vaping Use: Never Used Second Hand Smoke Exposure: No service: No Current occupational status: employed Cognitive needs: No Hearing needs: No Vision needs: No Questionnaire Thrive Questionnaire Date Thrive assessed: 04/17/24 I am a: Patient What is your living situation today?: I have a steady place to live Within the past 12 months, did the food you bought not last and you didn't have the money to get more?: I choose not to answer this question Within the past 12 months, did you worry whether your food would run out before you got money to buy more?: I choose not to answer this question Do you have trouble paying for medicines?: I choose not to answer this question Do you have trouble getting transportation to medical appointments?: No Do you have trouble paying your heating and electricity bill?: I choose not to answer this question Do you have trouble taking care of your child, family member or friend?: No Do you have trouble with day-to-day activities such as bathing, preparing meals, shopping, managing finances, etc.?: No Are you currently unemployed and looking for a job?: No Are you interested in more education?: No Please select the resources that you would like help with: None Currently or been in a relationship where the following occur: No concerns reported THRIVE Score: 0 DALI-7 AMB Questionnaire DALI-7 Date DALI - 7 assessed: 04/17/24 Source: Developed by Drs. Jean Pierre Ojeda, Sahra Green, Angel Reynaga and colleagues, with an educational airam from [employer]. Review of Systems Const Denies body aches, Denies chills, Denies fever(s), Denies headache(s) and Denies poor appetite Eyes Reports no additional complaints ENT Denies dizziness and Denies headache(s) Card Denies chest pain, Denies edema, Denies irregular heart rhythm, Denies lightheadedness and Denies dyspnea Resp Denies cough and Denies dyspnea GI Denies abdominal pain, Denies nausea and Denies vomiting Reports no additional complaints Musc Reports no additional complaints and Denies abnormal gait Skin/Breast Reports system reviewed and no additional complaints, except as documented Neuro Denies abnormal gait, Denies dizziness and Denies headache(s) Psych Reports no additional complaints Physical exam (Primary Care) Vital Signs: Last Vital Signs Temp 97.3 F 08/14/24 11:13 Pulse 89 08/14/24 11:13 BP 158/102 H 08/14/24 11:42 Pulse Ox 97 08/14/24 11:13 Oxygen Delivery Method Room Air 08/14/24 11:13 BMI result Body Mass Index 33.8 Tobacco/Smoking Status: Tobacco use Status Tobacco use date assessed 08/14/24 08/14/24 11:16 Patient Tobacco Use Status Never used Tobacco 08/14/24 11:20 Tobacco use type 04/17/24 14:13 e-Cigarette/Vaping Use Never Used 08/14/24 11:20 Thrive Assessment: Date of Thrive Assessment Date Thrive assessed 04/17/24 08/14/24 11:16 Currently or been in a relationship where the following occur: No concerns reported Const General: cooperative, healthy appearing, comfortable and no acute distress Orientation/consciousness: patient oriented x3 HENMT Head: Yes normocephalic Ears: hearing grossly normal bilaterally General nose exam: Normal external nose present Eyes General: appearance normal, both eyes and all related structures Conjunctivae: conjunctivae normal Neck Neck: Yes full ROM and Yes no lymphadenopathy Resp Effort & Inspection: normal respiratory effort Auscultation: clear to auscultation bilaterally, no crackles, no rales, no rhonchi and no wheezes Cardio Rate: regular rate Rhythm: regular rhythm Skin General skin exam: no rashes or lesions noted Neuro General: patient oriented x3 Gait exam (Neuro): Normal gait present Extrem General: Yes normal to inspection, Yes full ROM and No edema Psych Affect: normal affect Attitude: cooperative Insight: Good insight present (Psych) Judgement: Good judgement present (Psych) Coding Level of Care Code Est Pt Level 4 (92851) Diagnoses Primary hypertension I10 Hypertension type: primary hypertension Class 1 obesity due to excess calories without serious comorbidity with body mass index (BMI) of 33.0 to 33.9 in adult E66.811; E66.09; Z68.33 Body mass index: BMI 33.0-33.9 Obesity classification: adult class 1 (BMI 30 - 34.9) Obesity type: due to excess calories Serious obesity comorbidity presence: without serious comorbidity Attention deficit hyperactivity disorder (ADHD), unspecified ADHD type F90.9 Attention deficit-hyperactivity disorder type: unspecified Plantar fasciitis M72.2 Assessment & Plan Assessment & Plan (1) Hypertension: Code(s): I10 - Essential (primary) hypertension Category: Medical Qualifiers: Hypertension type: primary hypertension Qualified Code(s): I10 - Essential (primary) hypertension Plan: Continue on current blood pressure medication. Avoid salt intake and encourage healthy diet and regular exercise. Has been out of medication for the last several days. Her blood pressure was well managed when she was seen by nurse navigator however that was taken when she was on medication. Plan to continue on Atenolol at this time and advised patient to take blood pressure at home and bring log to next visit. (2) Obesity: Code(s): E66.9 - Obesity, unspecified Category: Medical Qualifiers: Body mass index: BMI 33.0-33.9 Obesity classification: adult class 1 (BMI 30 - 34.9) Obesity type: due to excess calories Serious obesity comorbidity presence: without serious comorbidity Qualified Code(s): E66.811 - Obesity, class 1; E66.09 - Other obesity due to excess calories; Z68.33 - Body mass index [BMI] 33.0-33.9, adult Plan: Healthy diet and regular exercise is encouraged. (3) ADHD: Comment: psychiatrist Ramana Murray every few months - 2024 Code(s): F90.9 - Attention-deficit hyperactivity disorder, unspecified type Category: Medical Qualifiers: Attention deficit-hyperactivity disorder type: unspecified Qualified Code(s): F90.9 - Attention-deficit hyperactivity disorder, unspecified type Plan: Working with psychiatrist for better improvement in symptoms. Plan to continue to increase Vyvanse with psych. (4) Plantar fasciitis: Code(s): M72.2 - Plantar fascial fibromatosis Category: Medical Plan: Patient complaining of symptoms consistent with plantar fasciitis. Discussed stretching, massaging and pain management. Advised patient to obtain proper footwear and insoles. Plan The patient will resume her ADHD medication, Vyvanse, and continue to work with her psychiatrist to adjust the dosage as needed. She is advised to pickle pumper her atenolol prescription and monitor her blood pressure at home, with a follow-up appointment scheduled in six weeks to reassess her hypertension management. For her dense breast tissue, the patient is scheduled for additional imaging to ensure comprehensive evaluation, given her family history of breast cancer. She is encouraged to continue wearing supportive footwear and perform recommended exercises to manage plantar fasciitis symptoms. The patient is advised to monitor her perimenopausal symptoms and discuss any significant changes with her billet sawyer. She is also encouraged to maintain a balanced lifestyle to manage stress and anxiety. This note was constructed using voice recognition software. While every effort has been made to ensure accuracy and auto bumper straightener, still areas may have been included sometimes these areas may affect the content or meeting of the given symptoms. Total time spent caring for the patient today was 20 minutes. This includes time spent before the visit reviewing the chart, time spent during the visit, and time spent after the visit and documentation. Patient was informed and verbally consented to the use of an ambient scribe for clinic note documentation during this visit. Medications: Refilled atenolol 25 mg PO BID 90 tabs 1RF
[2024-08-14 11:42] VITALS: BP 158/102
--- OUTSIDE RECORDS SUMMARY | 2024-08-14 12:30 | XMS_ITS | Data Portability ---
Author Organization [place] - [facility],, STACEY QUEZADA MD Address [address] [address] Care Team Providers Care Methods And Procedures Analyst Name Role Phone MEKHI VIDALES Primary Care Provider Assessment No assessment recorded. Plan of Treatment [...] Go To The Location Of Their Choice, [id number] 04/28/2024 16:16:02 hemoglob in, gastroin testinal , stool 2024 025 [email or web address] 1 In-Office Order, Internal Use Only DO Not Attach Compendium DO Not Attach Compendium, Do Not Delete/merge, [id number] 04/26/2024 10:12:27 pap test, thinprep , cervical 2023 024 [email or web address] [facility] (Centralized Electronic Ordering - All Locations), Patient Can Go To The Location Of Their Choice, [id number] 04/12/2023 07:48:33 beta-HCG , qualitat melody, serum or plasma 2022 023 KRYSTINA [facility] (Centralized Electronic Ordering - All Locations), Patient Can Go To The Location Of Their Choice, [id number] 03/20/2022 22:29:30 pap test, thinprep , cervical 2021 022 [facility], Cytopathology Service, [address] [place], [address], 10/14/2021 08:24:06 fecal occult blood, stool 2021 022 [email or web address] 1 In-Office Order, Internal Use Only DO Not Attach Compendium DO Not Attach Compendium, Do Not Delete/merge, [id number] 10/07/2021 13:57:37 pap test, thinprep , cervical 2020 021 [facility], Cytopathology Service, [address] [place], [address], 10/14/2020 09:46:51 [email or web address] a sp, culture, unspecif ied specimen 2020 021 [facility], Cytopathology Service, [address] [place], [address], 10/14/2020 09:46:51 NG DNA, PCR, genital 2020 021 [facility], Cytopathology Service, [address] [place], [address], 10/14/2020 09:46:51 Referral [facility] surgery referral - desire for permanen t steriliz ation. Has IUD in at this time, needs to stay in for history of menorrha lulu 2021 022 [facility] [employer], [address] [facility], [facility] [address], [place], [address], 01/25/2022 16:26:51 Procedures None recorded . Surgeries None recorded . Imaging MAMMO, screenin g, digital, bilatera l - Breast Aspirati on and/or Biopsy if needed 2024 025 [facility] Orders, [address], [place], [address], 07/31/2024 17:13:20 MAMMO, screenin g, digital, bilatera l - Breast Aspirati on and/or Biopsy if needed 2023 024 [email or web address] [facility] Orders, [address], [address], [place], [address], 03/30/2024 07:18:04 MAMMO, screenin g, digital, bilatera l 2021 022 KRYSTINA [facility], [address], [place], [address], 12/16/2021 16:50:58 Medication Orders None recorded . Patient TargetsNo targets recorded. Patient Instructions Encounter Date Encounter Id Patient Instructions Last Modified By Organization Details Last Modified Time 10/07/2020 [id number] learning about healthy weight Not available 10/07/2020 [...] new masses. Not available 10/07/2020 12:10:55 10/07/2021 [id number] learning about healthy weight Not available 10/07/2021 [...] the breast. Not available 10/07/2021 15:20:06 03/20/2022 [id number] heavy menstrual periods: care instructions Not available 03/20/2022 12:58:43 secondary amenorrhea: care instructions Not available 03/20/2022 12:56:41 This visit is a phone telehealth visit. The patient consented to the visit by phone. The patient was at home at the time of the call and the provider and patient were the only people on the line. I was at [address] [facility], [address], [place], [place], at the time of the call. [...] evaluation. Face to face discussion 20 [email or web address] Not available 03/20/2022 13:05:48 04/05/2023 [id number] learning about healthy weight Not available 04/05/2023 [...] the breast. Not available 04/05/2023 10:20:26 04/26/2024 [id number] learning about healthy weight Not available 04/26/2024 [...] LastModifiedTime 10/08/19 21 10/07/2020 GENER AL5CA SE [email or web address] Chlam ydia: NEGAT MELODY N. gonlisset rhoea e: NEGAT MELODY Compl eted on 10-08 CLINI FAHEEM INFOR MATIO N: Routi ne exam. LPS 0 NEG [Z01. 419, Z11.3 ] SOURC E: ThinP rep Pap for CT/GC Gross Descr iptio n: ThinP rep Vial Recei cameron. Physi cians MICHAELScott MOTAISABEL ALLEGRA/ [phone] Not Available [facility], Cytopathology Service [address] [place], [address], 10/09/2020 09:35:36 10/08/19 21 10/07/2020 PAP1C ASE [email or web address] ThinP rep Pap, Image d: NEGAT MELODY FOR SQUAM OUS INTRA EPITH ELIAL LESEVELIA Sánchez AND DOMITILA MCMANUS . Mayuri Pettit [...] NEG [Z12. 4, Z01.4 19] Not Available [facility], Cytopathology Service [address] [place], [address], 10/09/2020 14:17:18 10/08/19 22 10/07/2021 PAP1C ASE [email or web address] ThinP rep Pap, Image d: NEGAT MELODY [...] osis of ASCUS . Z12.4 Not Available [facility], Cytopathology Service [address] [place], [address], 10/13/2021 15:25:57 10/08/19 22 10/07/2021 fecal occul t blood , stool Occult Blood negati ve Not Available In-Office Order Internal Use Only DO Not Attach Compendium DO Not Attach Compendium, Do Not Delete/merge, [id number] 10/07/2021 10:44:17 03/20/19 23 03/20/2022 HCG PLUS [...] Go To The Location Of Their Choice, [id number] 03/20/2022 22:29:29 04/05/19 24 04/05/2023 [facility] CYTOL OGY results Patiarielle nt Name: SHRADDHA CURTIS nt : 1980 (Age: 42) Lab Acces matt #: [id number] Colle ction Date: 024 Acces matt Date: 024 Sign Out Date: 024 Tissu e Sourc e: 1: THINP REP GAS PROVER PAP TEST, CERVI FAHEEM: Final Diagn osis: [...] rep Imagi ng Syste m with steve slaughterr martha bender or noemi cortez. Perfo rmed at [facility] ate Refer ence Labor atory [facility] t[facility] Cytol ogy, [address] [place] Clini faheem Histo ry (othe r): Z01.4 19, ROUTI NE SCREE N, LPS 10/07 Phone #: [phone], On-Ca ll Patho logis t: [id number] Not Available [facility] (Centralized Electronic Ordering - All Locations) Patient Can Go To The Location Of Their Choice, [id number] 04/09/2023 14:36:25 04/26/19 25 04/28/2024 IGP, RFX APTIM A HPV ASCU diagnosis: Farooq OLIVER FOR INTRA EPITH ELIAL FELICITY Sánchez OR DOMITILA MCMANUS . Not Available [facility] ([facility]) [address] [place], [address], 04/28/2024 16:16:02 04/26/1904/28/2024 IGP, RFX APTIM A HPV ASCU specimen adequacy: Farooq josue for evalu ation . Endoc ervic al and/o r squam ous metap lasti c cells (endo cervi faheem compo nent) are prese nt. Not Available [facility] ([facility]) [address] [place], [address], 04/28/2024 16:16:02 04/26/19 25 04/28/2024 IGP, RFX APTIM A HPV ASCU clinician provided ICD10: Farooq hendrickson Z01.4 19 Not Available [facility] ([facility]) [address] [place], [address], 04/28/2024 16:16:02 04/26/19 25 04/28/2024 IGP, RFX APTIM A HPV ASCU performed by: Farooq Post Prior , Cytot black hendrickson (ASCP ) Not Available [facility] ([facility]) [address] [place], [address], 04/28/2024 16:16:02 04/26/19 25 04/28/2024 IGP, RFX APTIM A HPV ASCU . . Not Available [facility] ([facility]) [address] [place], [address], 04/28/2024 16:16:02 04/26/19 25 04/28/2024 IGP, RFX [...] ts do occur . Not Available [facility] ([facility]) [address] [place], [address], 04/28/2024 16:16:02 04/26/19 25 04/28/2024 IGP, RFX APTIM A HPV ASCU test methodology: Commen t This liqui d based ThinP rep(R ) pap test was scree lawrence with the use of an image guide d syste m. Not Available [facility] ([facility]) [address] [place], [address], 04/28/2024 16:16:02 04/26/19 25 04/28/2024 IGP, RFX APTIM A HPV ASCU . Commen t The HPV DNA refle x crite bipin were not met with this speci men resul t there fore, no HPV testi ng was perfo rmed. Not Available [facility] ([facility]) [address] [facility], [place], [address], 04/28/2024 16:16:02 04/26/19 25 04/26/2024 hemog lobin , gastr ointe beverly l, stool Occult Blood negati ve Not Available In-Office Order Internal Use Only DO Not Attach Compendium DO Not Attach Compendium, Do Not Delete/merge, [id number] 04/26/2024 09:54:54 12/17/19 22 12/16/2021 MAMMO , scree kendra, digit al, bilat eral No observ ation record ed. [facility] [address], [place], [address], 12/17/2021 08:29:10 08/01/19 25 07/31/2024 MAMMO , krystal gardner, digit al, bilat eral No observ ation record ed. [facility] [address], [place], [address], 08/01/2024 07:35:24 Result Notes None recorded. 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 MTHFR mutation, she does not make folate, so she takes a folate supplement daily Stacey Quezada MD [address] [facility],[address], [place], [address], [place] - [facility], 8 10:48:04 depression 93696815 Active 2017 Stacey Quezada MD [address] [facility],[address], [place], [address], [place] - [facility], 8 10:57:52 Dysfunctio nal uterine bleeding Active 2017 Stacey Quezada MD [address] [facility],[address], [place], [address], [place] - [facility], 8 11:11:01 Dry eyes 971202765 Active 2020 Maria Victoria mckenna [place] - [facility], 1 10:45:28 Problem Notes None recorded. Procedures Surgical History Date Name Laterality Status Provider Name and Address Organization Details Recorded Time 4 Most Recent Mammogram completed Iva Alanis in [facility], 04/26/2024 09:54:02 3 total excision of bilateral fallopian tubes completed Iva Harrell [place] - [facility], 04/05/2023 09:50:35 9 Unlisted px ant segment eye completed Maria Victoria Jain [place] - [facility], 10/04/2019 10:44:55 8 IUD Insertion completed Stacey Quezada MD [address] [facility],[address], [place], [address], [place] - [facility], 11/19/2017 11:00:27 5 Other completed Iva Harrell [place] - [facility], 09/10/2017 14:15:31 4 Other completed Iva Harrell [place] - [facility], 09/10/2017 14:14:07 Imaging Results None recorded. Procedure Notes None recorded. Medical Equipment None [...] 1 TABLET BY MOUTH EVERY 8 HOURS 02/05 /2024 completed Not Available Not Available Not Available [...] Not Available No t Available Flucelvax Quad 6501-9053 (PF) 60 mcg (15 mcg x 4)/0.5 [...] t Available Vitals Date Recorded Body height Provider Name an d Address Organization Details Last Updated DateTime 03/20/2022 170.18 cm Iva Michele in [facility], 03/20/2022 12:46:03 Date Recorded Body height Body mass index (BMI) Body weight Heart rate Body temperature Systolic blood pressure Diastolic blood pressure Provider Name and Address Organization Details Last Updated DateTime 4 170.18 cm 34.8 kg/m2 293153. 51 g 95 /min 97.3 [degF] 171 mm[Hg] 113 mm[Hg] Iva Alanis in [facility], 4 09:44:20 Date Recorded Body weight Body mass index (BMI) Body height Body temperature Heart rate Systolic blood pressure Diastolic blood pressure Provider Name and Address Organization Details Last Updated DateTime 5 31280.0 4 g 34 kg/m2 171.45 cm 97.8 [degF] 92 /min 167 mm[Hg] 107 mm[Hg] Iva Alanis in [facility], 5 09:49:50 Date Recorded Body weight Body mass index (BMI) Body height Heart rate Body temperature Systolic blood pressure Diastolic blood pressure Provider Name and Address Organization Details Last Updated DateTime 1 158016. 68 g 39.3 kg/m2 170.18 cm 88 /min 97.5 [degF] 139 mm[Hg] 99 mm[Hg] Maria Victoria Alanis in [facility], 1 10:43:46 Date Recorded Body height Body mass index (BMI) Body weight Body temperature Heart rate Systolic blood pressure Diastolic blood pressure Provider Name and Address Organization Details Last Updated DateTime 2 170.18 cm 37.5 kg/m2 615396. 29 g 98.2 [degF] 99 /min 159 mm[Hg] 97 mm[Hg] Iva Alanis in [facility], 2 10:39:28 Social History Question Answer Notes LastModified by Organizat ion Details LastModified Time Tobacco Smoking Status Never Smoker Not Available [facility] 01/02/2020 03:19:43 Do You Have An Advance Directive? No [id number] Information not available 01/02/2020 How Many Years Have You Consumed Alcohol? 20 Information not available 10/07/2021 What Is Your Level Of Caffeine Consumption? Occasional Information not available 10/07/2021 How Much Tobacco Do You Chew? None [id number] Information not available 01/02/2020 In The 14 Days Before Symptom Onset, Have You Had Close Contact With A Laboratory-confir med COVID-19 While That Case Was Ill? No [id number] Information not available 01/02/2020 In The 14 Days Before Symptom Onset, Have You Had Close Contact With A Person Who Is Under Investigation For COVID-19 While That Person Was Ill? No [id number] Information not available 01/02/2020 Have You Been To An Area Known To Be High Risk For COVID-19? No [id number] Information not available 01/02/2020 What Type Of Diet Are You Following? REGULAR [id number] Information not available 01/02/2020 Which Illicit Or Recreational Drugs Have You Used? No [id number] Information not available 01/02/2020 Do You Reside In Or Have You Traveled To An Area Where Ebola Virus Transmission Is Active? No [id number] Information not available 01/02/2020 Education 4 Year College Informatio n not available 09/10/2017 What Is The Highest Grade Or Level Of School You Have Completed Or The Highest Degree You Have Received? 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 Information not available 04/26/2024 How Many Days In The Past Year Have You Had A Heavy Drinking Consumption (4+ Female, 5+ Male)? 0 Information no t available 09/10/2017 Are There Any Guns Present In Your Home? No [id number] Information not available 01/02/2020 High Number Of [...] In Home Yes Information not available 09/10/2017 How Much Tobacco Do You Smoke? No [id number] Information not available 01/02/2020 General Stress Level High Information not available 09/10/2017 Do You Use Sunscreen Routinely? Yes [id number] Information not available 01/02/2020 How Many Years Have You Smoked Tobacco? 0 [id number] Information not available 01/02/2020 Have You Recently [...] LastModified by Organizat ion Details LastModified Time Do you use any illicit or recreational drugs? No Information not available 10/07/2020 Do you or have you ever used any other forms of tobacco or nicotine? No Information not available 04/26/2024 What is your level of alcohol consumption? Occasional Information not available 10/07/2020 Do you or have you ever used smokeless tobacco? Never used smokeless tobacco [id number] Information not available 01/02/2020 Are you currently employed? Yes Information not available 04/26/2024 Do you or have you ever used e-cigarettes or vape? Never used electronic cigarettes [id number] Information not available 01/02/2020 What is your exercise level? Occasional [id number] Information not available 01/02/2020 Mental Status Question Answer Note LastModified by Organization D etails LastModified Time Do you feel stressed (tense, restless, nervous, or anxious, or unable to sleep at night)? [id number] Information not available 10/07/2020 Family History Relationship Description Onset Age of this Age Resolved Age Notes LastModified by Organization Details LastModified Time Mother Malignant tumor of breast 46 brca tested and negati ve. [email or web address] Not available 09/10/2017 14:10:52 Mother Anxiety disorder quite a bit on matern al side along with depres matt. [email or web address] Not available 09/10/2017 14:11:33 Brother [...] Recorded Time Tdap 01/27/2017 completed Iva Meczywor null, [place] - [facility], 04/05/2023 09:58:51 COVID-19, mRNA, LNP-S, PF, 30 mcg/0.3 mL dose 06/11/2020 completed Iva Meczywor null, [place] - [facility], 04/05/2023 09:58:51 influenza nasal, unspecified formulation 02/19/2022 completed Iva Meczywor null, [place] - [facility], 04/05/2023 09:58:51 Influenza, MDCK, quadrivalent, PF 01/27/2017 completed Iva Meczywor null, [place] [facility], 04/05/2023 09:58:51 Influenza, MDCK, quadrivalent, PF 02/11/2020 completed Iva Meczywor null, [place] [facility], 04/05/2023 09:58:51 COVID-19, mRNA, LNP-S, PF, 100 mcg/0.5mL dose or 50 mcg/0.25mL dose 02/01/2021 completed Iva Meczywor null, [place] - [facility], 04/05/2023 09:58:51 COVID-19, mRNA, LNP-S, PF, 30 mcg/0.3 mL dose 07/02/2020 completed Iva Meczywor null, [place] - [facility], 04/05/2023 09:58:51 COVID-19, mRNA, LNP-S, bivalent, PF, 30 mcg/0.3 mL dose 12/05/2021 completed Iva Meczywor null, [place] [facility], 04/05/2023 09:58:51 Influenza, split virus, quadrivalent, PF 03/06/2022 completed Iva Meczywor null, [place] [facility], 04/05/2023 09:58:51 Influenza, MDCK, quadrivalent, PF 11/28/2022 completed Iva Meczywor null, [place] [facility], 04/26/2024 09:49:08 COVID-19, mRNA, LNP-S, PF, derek-sucrose, 30 mcg/0.3 mL 11/28/2022 completed Iva Meczywor null, [place] - [facility], 04/26/2024 09:49:08 Past Encounters Encounter ID Performer Location Encounter Start Date Encounter Closed Date Diagnosis/Indication Diagnosis SNOMED-CT Code Diagnosis ICD10 Code Diagnosis Note [id number] MD STACEY Olmstead MD [address] [place] [address],[address] [place] [address] 09/10/2017 13:54:02 09/10/2017 15:31:34 Specialized medical examination 98882023 Z01.419 Venereal d isease screening 445804394 Z11.3 [id number] MD STACEY Olmstead MD [address] [place] [address],[address] [place] [address] 10/08/2017 14:17:18 10/08/2017 14:54:26 [id number] MD STAECY Olmstead MD [address] [place] [address],[address] [place] [address] 11/05/2017 10:51:42 11/05/2017 11:52:17 [id number] MD STACEY Olmstead MD [address] [place] [address], [address] [place] [address] 11/19/2017 10:20:14 11/19/2017 14:59:33 Insertion of intrauterine contraceptive device 49433983 Z30.430 [id number] MD STACEY Olmstead MD [address] [place] [address],[address] [place] [address] 12/17/2017 10:29:52 12/17/2017 14:16:30 depression 52902831 F53.0 [id number] MD STACEY Olmstead MD [address] [place] [address],[place] [address] 01/28/2018 10:44:38 01/28/2018 14:15:49 depression 62662997 F53.0 Dysfunctio nal uterine bleeding 37828258 N93.8 [id number] MD STACEY Olmstead MD [address] [place] [address],[place] [address] 03/04/2018 10:39:54 03/04/2018 14:19:37 depression 13940257 F53.0 Dysfunctio nal uterine bleeding 49882336 N93.8 [id number] MD STACEY Olmstead MD [address] [place] [address],[place] [address] 09/28/2018 10:38:35 09/28/2018 11:48:57 Specialized medical examination 50798029 Z01.419 Venereal d isease screening 085878944 Z11.3 [id number] MD STACEY Olmstead MD [address] [place] [address],[place] [address] 10/04/2019 10:37:22 10/04/2019 11:55:40 Specialized medical examination 42740783 Z01.419 Venereal d isease screening 524608850 Z11.3 [id number] MD STACEY Olmstead MD [address] [place] [address],[place] [address] 10/07/2020 10:40:14 10/07/2020 13:43:11 Specialized medical examination 64998975 Z01.419 Venereal d isease screening 230824990 Z11.3 [id number] MD STACEY Olmstead MD [address] [place] [address],[place] [address] 10/07/2021 10:35:58 10/07/2021 15:34:36 Specialized medical examination 59641823 Z01.419 Screening for malignant neoplasm of rectum 981593370 Z12.12 Screening mammography 24 310965 Z12.31 Sterilizat ion requested 068414233 Z30.2 [id number] MD STACEY Olmstead MD [address] [place] [address] 03/20/2022 12:45:45 03/20/2022 13:43:58 Amenorrhea 58425146 N91.2 Menorrhagia 457391752 N9 2.0 [id number] MD STACEY Olmstead MD [address] [place] [address] 04/05/2023 09:37:02 04/05/2023 13:48:31 Specialized medical examination 84249789 Z01.419 Screening for malignant neoplasm of rectum 741517731 Z12.12 Screening mammography 24 629025 Z12.31 [id number] MD STACEY Olmstead MD [address] [place] [address] 04/26/2024 09:45:09 04/26/2024 11:51:32 Specialized medical examination 10003570 Z01.419 Screening for malignant neoplasm of rectum 258772463 Z12.12 Screening mammography 24 308743 Z12.31 Health Concerns Section Related Observation LastModified by Organization Detai ls LastModified Time None Recorded Concern Status LastModified by Organization Details LastModified Time None Recorded Advance Directives Directive N: Payers Insurance Date Sequence Insurance Name Policy Number Policy Lopez Covered Member ID Lopez Member ID Guarantor Name 04/23/2024 1 [facility] - [employer] [id number] Harris Galvez [id number] Marlee Galvez Notes Date Note Type Note Provider Name and Address Organization Details Recorded Time 10/07/2020 text/html She is here for annual exam. Mirena placed 11/16. Menses light. 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 Stcaey Quezada MD [address], [place], [address], [facility], 10/07/2020 12:11:27 10/07/2021 text/html She [...] at home mom. Stacey Quezada MD [address] [facility],[address], [place], [address], [place] - [facility], 10/07/2021 15:20:27 03/20/2022 text/html This visit is a phone telehealth visit. The patient consented to the visit by phone. The patient was at home at the time of the call and the provider and patient were the only people on the line. I was at [address] [facility], [address], [place], at the time of the call. She had a Mirena placed in 2017, and typically has a light bleeding for a day or two, each month. This last menses however began on 03/20/22 (today) and is heavy, with dark and red blood, which is very unusual for her. No cramping, no pain. Stacey Quezada MD [address] [facility],[address], [place], [address], [place] [facility], 03/20/2022 13:16:23 04/05/2023 text/html She is here [...] in the future. Stacey Quezada MD [address], [place], [address], [place] - [facility], 04/05/2023 10:20:59 04/26/2024 text/html She is her [...] not feeling ill. Stacey Quezada MD [address], [place], [address], [place] - [facility], 04/26/2024 10:13:32 OBGyn Episode No OBEpisode recorded.
== END 2024-08-14 12:01 | disposition home or self-care (01) ==
LOC: HO.HMCH 10:58
DX: I10 Essential (primary) hypertension (principal); E66.811 Obesity, class 1; E66.09 Other obesity due to excess calories; Z68.33 Body mass index [BMI] 33.0-33.9, adult; F90.9 Attention-deficit hyperactivity disorder, unspecified type; M72.2 Plantar fascial fibromatosis

== ENCOUNTER → 2024-08-14 10:58 | Outpatient (BNVA) | payer OTHER, SELFPAY | DX: Z13.89 Encounter for screening for other disorder (principal) ==

== ENCOUNTER 2024-10-16 09:34 | Outpatient (AMB) | payer OTHER, SELFPAY ==
--- NOTE | 2024-10-16 09:45 | A.OFFPC_ITS ---
Vital Signs 10/16/24 09:46 Height 5 ft 7 in Weight 215 lb 6 oz BMI 33.7 BP 138/86 Blood Pressure Location Lt brachial Position Sitting Pulse 76 Pulse Source Pulse Oximeter Pulse Oximetry (%) 98 Oxygen Delivery Method Room Air Intake Visit Reasons: f/u HTN New Product Trainer Required: No Accompanied by: Self / Same As Patient Allergies Milk Containing Products (Dairy) Allergy (Mild, Verified 10/16/24 09:48) stomach ache amlodipine Adverse Reaction (Intermediate, Verified 10/16/24 09:48) Muscle Pain Medication List - Last Reconciled 10/16/24 by Caity Qiu PA-C atenolol 25 mg PO BID fluticasone propionate 50 mcg/actuation 1 spray intranasal DAILY lisdexamfetamine 50 mg PO DAILY melatonin 10 mg PO BEDTIME PRN Tobacco use date assessed: 10/16/24 Dental Screening Dental Screen Date: 10/16/24 Did you have a dental visit in the last 12 months?: No Did you have a dental problem in the last 6 months where you did not have access to dental care?: No Was dental information given to patient?: No HPI f/u HTN HPI Details 44-year-old female with past medical his tory ADHD, depression and hypertension last seen 07/2024 coming in for follow up. Presenting with hypertension, carpal tunnel syndrome, and plantar fasciitis. Currently managed with atenolol twice daily. The patient does not monitor her blood pressure at home and denies headaches or chest pain. Reports numbness and tingling in both hands, primarily affecting the first two fingers. Symptoms are exacerbated by repetitive movements and worsen at night. Experiences pins and needles sensation in fingers and numbness down the arm when lying down. Attends weekly acupuncture sessions focusing on arms and hands. Reports persistent heel pain and is considering a referral to a search engine optimization specialist for further evaluation. [facility] Medical History MTHFR mutation Depression Endocarditis Obesity, class 2 ADHD Surgical History History of heart valve repair History of bilateral salpingectomy Family History Mother Breast cancer Social History Housing: House Alcohol intake: current Alcohol intake frequency: a few times a month Patient Tobacco Use Status: Never used Tobacco e-Cigarette/Vaping Use: Never Used Second Hand Smoke Exposure: No service: No Current occupational status: employed Cognitive needs: No Hearing needs: No Vision needs: No Questionnaire Thrive Questionnaire Date Thrive assessed: 10/16/24 I am a: Patient What is your living situation today?: I have a steady place to live Within the past 12 months, did the food you bought not last and you didn't have the money to get more?: I choose not to answer this question Within the past 12 months, did you worry whether your food would run out before you got money to buy more?: I choose not to answer this question Do you have trouble paying for medicines?: I choose not to answer this question Do you have trouble getting transportation to medical appointments?: No Do you have trouble paying your heating and electricity bill?: I choose not to answer this question Do you have trouble taking care of your child, family member or friend?: No Do you have trouble with day-to-day activities such as bathing, preparing meals, shopping, managing finances, etc.?: No Are you currently unemployed and looking for a job?: No Are you interested in more education?: No Please select the resources that you would like help with: None Currently or been in a relationship where the following occur: No concerns reported THRIVE Score: 0 DALI-7 AMB Questionnaire DALI-7 Date DALI - 7 assessed: 10/16/24 Source: Developed by Drs. Jean Pierre Ojeda, Sahra Green, Angel Reynaga and colleagues, with an educational airam from [employer]. Review of Systems Const Denies body aches, Denies chills, Denies fever(s), Denies headache(s) and Denies poor appetite Eyes Reports no additional complaints ENT Denies headache(s) Card Denies chest pain, Denies syncope, Denies edema, Denies lightheadedness and Denies dyspnea Resp Denies dyspnea GI Denies diarrhea, Denies nausea and Denies vomiting Reports no additional complaints Musc Reports no additional complaints and Denies abnormal gait Skin/Breast Reports system reviewed and no additional complaints, except as documented Neuro Denies abnormal gait, Denies syncope and Denies headache(s) Psych Reports no additional complaints Physical exam (Primary Care) Vital Signs: Last Vital Signs Pulse 76 10/16/24 09:46 BP 138/86 10/16/24 09:46 Pulse Ox 98 10/16/24 09:46 Oxygen Delivery Method Room Air 10/16/24 09:46 BMI result Body Mass Index 33.7 Tobacco/Smoking Status: Tobacco use Status Tobacco use date assessed 10/16/24 10/16/24 09:48 Patient Tobacco Use Status Never used Tobacco 10/16/24 09:48 Tobacco use type 04/17/24 14:13 e-Cigarette/Vaping Use Never Used 10/16/24 09:48 Thrive Assessment: Date of Thrive Assessment Date Thrive assessed 10/16/24 10/16/24 09:48 Currently or been in a relationship where the following occur: No concerns reported Const General: cooperative, healthy appearing, comfortable and no acute distress Orientation/consciousness: patient oriented x3 HENMT Head: Yes normocephalic Ears: hearing grossly normal bilaterally General nose exam: Normal external nose present Eyes General: appearance normal, both eyes and all related structures Conjunctivae: conjunctivae normal Neck Neck: Yes full ROM and Yes no lymphadenopathy Resp Effort & Inspection: normal respiratory effort Auscultation: clear to auscultation bilaterally, no crackles, no rales, no rhonchi and no wheezes Cardio Rate: regular rate Rhythm: regular rhythm Skin General skin exam: no rashes or lesions noted Neuro Other: Positive Phalen's test General: patient oriented x3 Gait exam (Neuro): Normal gait present Extrem General: Yes normal to inspection, Yes full ROM and No edema Psych Affect: normal affect Attitude: cooperative Insight: Good insight present (Psych) Judgement: Good judgement present (Psych) Coding Level of Care Code Est Pt Level 4 (66492) Diagnoses Primary hypertension I10 Hypertension type: primary hypertension Class 1 obesity due to excess calories without serious comorbidity with body mass index (BMI) of 33.0 to 33.9 in adult E66.811; E66.09; Z68.33 Body mass index: BMI 33.0-33.9 Obesity classification: adult class 1 (BMI 30 - 34.9) Obesity type: due to excess calories Serious obesity comorbidity presence: without serious comorbidity Attention deficit hyperactivity disorder (ADHD), unspecified ADHD type F90.9 Attention deficit-hyperactivity disorder type: unspecified Plantar fasciitis M72.2 Numbness and tingling in both hands R20.0; R20.2 Assessment & Plan Assessment & Plan (1) Hypertension: Code(s): I10 - Essential (primary) hypertension Category: Medical Qualifiers: Hypertension type: primary hypertension Qualified Code(s): I10 - Essential (primary) hypertension Plan: Continue on current blood pressure medication. Avoid salt intake and encourage healthy diet and regular exercise. Blood pressure mildly elevated on exam today. Strongly advised patient to obtain blood pressure monitor and take blood pressure 3 to 4 times per week and bring to next visit. (2) Obesity: Code(s): E66.9 - Obesity, unspecified Category: Medical Qualifiers: Body mass index: BMI 33.0-33.9 Obesity classification: adult class 1 (BMI 30 - 34.9) Obesity type: due to excess calories Serious obesity comorbidity presence: without serious comorbidity Qualified Code(s): E66.811 - Obesity, class 1; E66.09 - Other obesity due to excess calories; Z68.33 - Body mass index [BMI] 33.0-33.9, adult Plan: Healthy diet and regular exercise is encouraged. (3) ADHD: Comment: psychiatrist Ramana Murray every few months - 2024 Code(s): F90.9 - Attention-deficit hyperactivity disorder, unspecified type Category: Medical Qualifiers: Attention deficit-hyperactivity disorder type: unspecified Qualified Code(s): F90.9 - Attention-deficit hyperactivity disorder, unspecified type Plan: Working with psychiatrist for better improvement in symptoms. Plan to continue to increase Vyvanse with psych. (4) Plantar fasciitis: Code(s): M72.2 - Plantar fascial fibromatosis Category: Medical Plan: Patient has been working on the stretching exercises given at last visit without good benefit. PLan to obtain podiatry consult at this time. (5) Numbness and tingling in both hands: Code(s): R20.0 - Anesthesia of skin; R20.2 - Paresthesia of skin Category: Medical Plan: Patient complaining of numbness and tingling in the 2nd 3rd digits bilaterally. Positive Phalen's test today. Discussed nighttime splints and plan to obtain upper extremity EMG bilaterally. Patient also concern on the left side the numbness and tingling may be coming from her shoulder and plan to obtain x-ray as well. Plan The management plan for hypertension involves continuing atenolol twice daily and considering home blood pressure monitoring. The patient should remain vigilant for symptoms like headaches or chest pain and report any changes. For carpal tunnel syndrome, a nerve conduction study is ordered to determine the severity and source of symptoms. The patient is advised to wear wrist splints at night to alleviate inflammation and prevent further nerve compression. An x-ray of the shoulder is planned to investigate potential structural causes of nerve impingement. Depending on the findings, physical therapy or orthopedic consultation may be pursued. A referral to a search engine optimization specialist is made for plantar fasciitis to assess the need for interventions such as orthotics or specialized footwear. This note was constructed using voice recognition software. While every effort has been made to ensure accuracy and therapy site coordinator, still areas may have been included sometimes these areas may affect the content or meeting of the given symptoms. Total time spent caring for the patient today was 20 minutes. This includes time spent before the visit reviewing the chart, time spent during the visit, and time spent after the visit and documentation. Patient was informed and verbally consented to the use of an ambient scribe for clinic note documentation during this visit. Orders: Orders XR shoulder LT min 2V Today M25.512 - Pain in left shoulder NE electromyogram (EMG) Today R20.0 - Anesthesia of skin, R20.2 - Paresthesia of skin NE nerve conduction velocity Today R20.0 - Anesthesia of skin, R20.2 - Paresthesia of skin Referrals Podiatry Referral M72.2 - Plantar fascial fibromatosis
[2024-10-16 09:46] VITALS: BP 138/86; PULSE 76; O2SAT 98; BMI 33.7
== END 2024-10-16 10:22 | disposition home or self-care (01) ==
LOC: HO.HMCH 09:35
DX: I10 Essential (primary) hypertension (principal); E66.811 Obesity, class 1; E66.09 Other obesity due to excess calories; Z68.33 Body mass index [BMI] 33.0-33.9, adult; F90.9 Attention-deficit hyperactivity disorder, unspecified type; M72.2 Plantar fascial fibromatosis; R20.0 Anesthesia of skin; R20.2 Paresthesia of skin

== ENCOUNTER 2025-01-22 10:36 | Outpatient (AMB) | payer OTHER, SELFPAY ==
[2025-01-22 10:45] VITALS: BP 130/82; PULSE 77; TEMP 36.7; O2SAT 99; BMI 33.9
--- NOTE | 2025-01-22 10:45 | A.OFFPC_ITS ---
Vital Signs 01/22/25 10:45 Height 5 ft 7 in Weight 216 lb 8 oz BMI 33.9 BP 130/82 Blood Pressure Location Lt brachial Position Sitting Pulse 77 Pulse Source Pulse Oximeter Temp 98.1 F Temp Source Temporal Artery Scan Pulse Oximetry (%) 99 Oxygen Delivery Method Room Air Intake Visit Reasons: Annual Exam Freight Claim Investigator Required: No Accompanied by: Self / Same As Patient Allergies Milk Containing Products (Dairy) Allergy (Mild, Verified 01/22/25 10:51) stomach ache amlodipine Adverse Reaction (Intermediate, Verified 01/22/25 10:51) Muscle Pain Medication List - Last Reconciled 01/22/25 by Caity Qiu PA-C atenolol 25 mg PO BID fluticasone propionate 50 mcg/actuation 1 spray intranasal DAILY lisdexamfetamine 50 mg PO DAILY melatonin 10 mg PO BEDTIME PRN Tobacco use date assessed: 10/16/24 Dental Screening Dental Screen Date: 10/16/24 Did you have a dental visit in the last 12 months?: Yes Did you have a dental problem in the last 6 months where you did not have access to dental care?: No Was dental information given to patient?: Patient has dentist HPI Annual Exam HPI Details 44-year-old female with past medical his tory ADHD, depression and hypertension last seen 09/2024 coming in for annual exam. Presenting for an annual physical examination. Regarding menstrual health, the patient experiences periods every 21 days, described as heavy, and associated with debilitating fatigue, weakness, a desire to remain in bed, intermittent headaches, and lightheadedness. These symptoms are worsening. The patient has a history of using control pills but is now averse to hormonal therapies containing estrogen due to a family history of breast cancer; the patient's mother had stage 0 breast cancer attributed to excess estrogen. The patient reports ongoing bilateral foot pain, primarily under the heel, which is consistent with plantar fasciitis. The patient did not follow up on a previous podiatry referral but performs stretches intermittently. pap smear: 04/2023 [facility] mammo: [facility] vaccines: UTD [facility], [facility] Medical History MTHFR mutation Depression Endocarditis Obesity, class 2 ADHD Surgical History History of heart valve repair History of bilateral salpingectomy Family History Mother Breast cancer Social History Housing: House Alcohol intake: current Alcohol intake frequency: a few times a month Patient Tobacco Use Status: Never used Tobacco e-Cigarette/Vaping Use: Never Used Second Hand Smoke Exposure: No service: No Current occupational status: employed Cognitive needs: No Hearing needs: No Vision needs: No Female Reproductive History Menstrual Total pregnancies: 2 Full term: 2 History of abnormal pap smear: No Questionnaire PHQ-9 Over the last 2 weeks, how often have you been bothered by any of the following problems? 1. Little interest or pleasure in doing things: nearly every day 2. Feeling down, depressed, or hopeless: several days 3. Trouble falling or staying asleep, or sleeping too much: several days 4. Feeling tired or having little energy: several days 5. Poor appetite or overeating: several days 6. Feeling bad about yourself - or that you are a failure or have let yourself or your family down: not at all 7. Trouble concentrating on things, such as reading the newspaper or watching television: not at all 8. Moving or speaking so slowly that other people could have noticed. Or the opposite - being so fidgety or restless that you have been moving around a lot more than usual: not at all 9. Thoughts that you would be better off or of hurting yourself in some way: not at all Total score: 7 Depression Screening Interpretation: Positive Depression Screening Follow-up: Existing condition and Declines treatment Depression Screening Done: Yes [id number] - PHQ-9 Billing: Yes Source: Developed by Drs. Jean Pierre Ojeda, Sahra Green, Angel Reynaga and colleagues, with an educational airam from [employer]. Thrive Questionnaire Date Thrive assessed: 04/17/24 I am a: Patient What is your living situation today?: I have a steady place to live Within the past 12 months, did the food you bought not last and you didn't have the money to get more?: I choose not to answer this question Within the past 12 months, did you worry whether your food would run out before you got money to buy more?: I choose not to answer this question Do you have trouble paying for medicines?: I choose not to answer this question Do you have trouble getting transportation to medical appointments?: No Do you have trouble paying your heating and electricity bill?: I choose not to answer this question Do you have trouble taking care of your child, family member or friend?: No Do you have trouble with day-to-day activities such as bathing, preparing meals, shopping, managing finances, etc.?: No Are you currently unemployed and looking for a job?: No Are you interested in more education?: No Please select the resources that you would like help with: None Currently or been in a relationship where the following occur: No concerns reported THRIVE Score: 0 AUDIT C Alcohol Use Questionnaire (AUDIT-C) 1. How often do you have a drink containing alcohol?: Monthly or less 2. How many drinks containing alcohol do you have on a typical day when you are drinking?: 1 or 2 Total Score: 1 DALI-7 AMB Questionnaire DALI-7 Date DALI - 7 assessed: 10/16/24 Feeling nervous, anxious, or on edge: 1 = Several days Not being able to stop or control worryin = Not at all Worrying too much about different things: 0 = Not at all Trouble relaxin = Several days Being so restless that it is hard to sit still: 0 = Not at all Becoming easily annoyed or irritable: 0 = Not at all Feeling afraid as if something awful might happen: 0 = Not at all Total DALI-7 score (0-4 normal; 5-9 mild; 10-14 moderate; 15-21 severe): 2 Source: Developed by Drs. Jean Pierre Ojeda, Sahra Green, Angel Reynaga and colleagues, with an educational airam from [employer]. Review of Systems Const Denies body aches, Reports fatigue, Denies fever(s), Denies frequent falls, Denies headache(s) and Denies weakness Eyes Reports no additional complaints and Denies change in vision ENT Denies dizziness, Denies facial pain, Denies headache(s) and Denies nasal congestion Card Denies chest pain, Denies syncope, Denies irregular heart rhythm, Denies leg edema, Denies lightheadedness and Denies dyspnea Resp Denies cough and Denies dyspnea GI Denies abdominal pain, Denies dyspepsia, Denies diarrhea, Denies nausea and Denies vomiting Denies urinary frequency, Denies dysuria, Denies urinary hesitancy and Denies urinary urgency Musc Denies back pain and Denies myalgias Skin/Breast Reports system reviewed and no additional complaints, except as documented Neuro Denies dizziness, Denies syncope, Denies frequent falls, Denies headache(s) and Denies weakness Psych Reports no additional complaints Endo Reports fatigue Physical exam (Primary Care) Vital Signs: Last Vital Signs Temp 98.1 F 01/22/25 10:45 Pulse 77 01/22/25 10:45 BP 130/82 01/22/25 10:45 Pulse Ox 99 01/22/25 10:45 Oxygen Delivery Method Room Air 01/22/25 10:45 BMI result Body Mass Index 33.9 Tobacco/Smoking Status: Tobacco use Status Tobacco use date assessed 10/16/24 01/22/25 10:51 Patient Tobacco Use Status Never used Tobacco 01/22/25 10:51 Tobacco use type 04/17/24 14:13 e-Cigarette/Vaping Use Never Used 01/22/25 10:51 PHQ-9: PHQ-9 Score PHQ-9: Total score 7 01/22/25 11:09 Depression Screening Interpretation: Positive Depression Screening Follow-up: Existing condition and Declines treatment Thrive Assessment: Date of Thrive Assessment Date Thrive assessed 04/17/24 01/22/25 10:51 Currently or been in a relationship where the following occur: No concerns reported Const General: cooperative, healthy appearing, comfortable and no acute distress Orientation/consciousness: patient oriented x3 HENMT Head: Yes normocephalic Ears: hearing grossly normal bilaterally, external ears normal, TM's normal bilaterally and EAC's normal General nose exam: Normal external nose present Face and sinus: Yes normal facial exam and Yes sinuses nontender Mouth: Normal oral and palatal mucosa present and tongue normal Throat: Yes posterior oropharynx normal Eyes General: appearance normal, both eyes and all related structures Conjunctivae: conjunctivae normal Pupils: Equal, round and reactive pupils present EOM: EOMs intact bilaterally and No Nystagmus present Neck Neck: Yes normal visual inspection, Yes full ROM and Yes no lymphadenopathy Chest Chest palpation & inspection: normal inspection of the chest Resp Effort & Inspection: normal respiratory effort Auscultation: clear to auscultation bilaterally, no crackles, no rales, no rhonchi, no wheezes and breath sounds present Cardio Rate: regular rate Rhythm: regular rhythm Peripheral pulses: radial pulses present and dorsalis pedis present GI Inspection: Yes normal to inspection and No Abdominal wall edema Palpation (GI): Soft to palpation, not firm and nontender Auscultation: normal bowel sounds Rectal Exam - Female: deferred General: Yes no CVA tenderness Back/Spine/Pelvis Back: no CVA tenderness Skin General skin exam: no rashes or lesions noted Neuro General: patient oriented x3 Cranial nerves: Yes Equal, round and reactive pupils present, Yes Midline tongue present, Yes Ability to bilaterally elevate shoulders present and No Nystagmus present Gait exam (Neuro): Normal gait present Extrem General: Yes normal to inspection, Yes full ROM, No no pedal edema and No edema Psych Speech and movement: Normal speech and movement present Affect: normal affect Insight: Good insight present (Psych) Judgement: Good judgement present (Psych) Coding Level of Care Code Est Pt Prev Care 40-64y(36068) Diagnoses Annual physical exam Z00.00 Primary hypertension I10 Hypertension type: primary hypertension Class 1 obesity due to excess calories without serious comorbidity with body mass index (BMI) of 33.0 to 33.9 in adult E66.811; E66.09; Z68.33 Body mass index: BMI 33.0-33.9 Obesity classification: adult class 1 (BMI 30 - 34.9) Obesity type: due to excess calories Serious obesity comorbidity presence: without serious comorbidity Attention deficit hyperactivity disorder (ADHD), unspecified ADHD type F90.9 Attention deficit-hyperactivity disorder type: unspecified Plantar fasciitis M72.2 Numbness and tingling in both hands R20.0; R20.2 Heavy menses N92.0 Additional Codes PHQ-9 - 13498 - PHQ-9 Billing: Yes ([id number]) Assessment & Plan Assessment & Plan (1) Annual physical exam: Code(s): Z00.00 - Encounter for general adult medical examination without abnormal findings Category: Medical Plan: The patient presented for an annual physical exam. The patient is up-to-date on vaccinations including tetanus, flu, and COVID-19, as well as mammogram and Pap smear screenings. Comprehensive fasting blood work was ordered, including a CBC, metabolic panel, lipid panel, iron studies, TSH, B12, and folate. A follow-up is scheduled in six months to review lab results and monitor ongoing issues, with an option to cancel if results are normal and the patient is feeling well. (2) Hypertension: Code(s): I10 - Essential (primary) hypertension Category: Medical Qualifiers: Hypertension type: primary hypertension Qualified Code(s): I10 - Essential (primary) hypertension Plan: Continue on current blood pressure medication. Avoid salt intake and encourage healthy diet and regular exercise. (3) Obesity: Code(s): E66.9 - Obesity, unspecified Category: Medical Qualifiers: Body mass index: BMI 33.0-33.9 Obesity classification: adult class 1 (BMI 30 - 34.9) Obesity type: due to excess calories Serious obesity comorbidity presence: without serious comorbidity Qualified Code(s): E66.811 - Obesity, class 1; E66.09 - Other obesity due to excess calories; Z68.33 - Body mass index [BMI] 33.0-33.9, adult Plan: Healthy diet and regular exercise is encouraged. (4) ADHD: Comment: psychiatrist Ramana Murray every few months - 2024 Code(s): F90.9 - Attention-deficit hyperactivity disorder, unspecified type Category: Medical Qualifiers: Attention deficit-hyperactivity disorder type: unspecified Qualified Code(s): F90.9 - Attention-deficit hyperactivity disorder, unspecified type Plan: Working with psychiatrist for better improvement in symptoms. Plan to continue to increase Vyvanse with psych. (5) Plantar fasciitis: Code(s): M72.2 - Plantar fascial fibromatosis Category: Medical Plan: Patient has been working on the stretching exercises given at last visit without good benefit. PLan to obtain podiatry consult at this time. She will call them to r/s appointment and was provided with the office number today. (6) Numbness and tingling in both hands: Code(s): R20.0 - Anesthesia of skin; R20.2 - Paresthesia of skin Category: Medical Plan: The patient is receiving weekly acupuncture for symptoms in the hands and arms, suspected to be from nerve impingement. A nerve study was previously ordered, but the appointment was missed. The scheduling phone number was provided to the patient to reschedule the test. (7) Heavy menses: Code(s): N92.0 - Excessive and frequent menstruation with regular cycle Category: Medical Plan: The patient reports a 21-day menstrual cycle with heavy bleeding, causing significant fatigue, headaches, and lightheadedness, which suggests possible iron-deficiency anemia or a thyroid condition. Lab work including an iron profile and thyroid panel was ordered to investigate these possibilities. Given the patient's aversion to estrogen-based therapy due to a family history of breast cancer, the patient was advised to discuss progesterone-only options (such as pills or an IUD) or ablation with their crap shooter. Plan This note was constructed using voice recognition software. While every effort has been made to ensure accuracy and resolution expert, still areas may have been included sometimes these areas may affect the content or meeting of the given symptoms. Total time spent caring for the patient today was 30 minutes. This includes time spent before the visit reviewing the chart, time spent during the visit, and time spent after the visit and documentation. Patient was informed and verbally consented to the use of an ambient scribe for clinic note documentation during this visit. Orders: Orders IRON PROFILE Today N92.0 - Excessive and frequent menstruation with regular cycle Ferritin Today N92.0 - Excessive and frequent menstruation with regular cycle Vitamin D 25-OH Total Today E55.9 - Vitamin D deficiency, unspecified, Z13.21 - Encounter for screening for nutritional disorder Comprehensive Met. Panel Today N92.0 - Excessive and frequent menstruation with regular cycle, Z00.00 - Encounter for general adult medical examination without abnormal findings Lipid Panel Today Z13.220 - Encounter for screening for lipoid disorders Vitamin B12 and Folate Today Z13.21 - Encounter for screening for nutritional disorder TSH reflex Free T4 Today Z13.29 - Encounter for screening for other suspected endocrine disorder Complete Blood Count Auto Diff Today N92.0 - Excessive and frequent menstr uation with regular cycle, Z13.0 - Encounter for screening for diseases of the blood and blood-forming organs and certain disorders involving the immune mechanism
== END 2025-01-22 11:58 | disposition home or self-care (01) ==
LOC: HO.HMCH 10:37
DX: Z00.00 Encounter for general adult medical examination without abnormal findings (principal); I10 Essential (primary) hypertension; E66.811 Obesity, class 1; E66.09 Other obesity due to excess calories; Z68.33 Body mass index [BMI] 33.0-33.9, adult; F90.9 Attention-deficit hyperactivity disorder, unspecified type; M72.2 Plantar fascial fibromatosis; R20.0 Anesthesia of skin; R20.2 Paresthesia of skin; N92.0 Excessive and frequent menstruation with regular cycle

== ENCOUNTER → 2025-01-22 10:36 | Outpatient (BNVA) | payer OTHER, SELFPAY | DX: Z00.00 Encounter for general adult medical examination without abnormal findings (principal); I10 Essential (primary) hypertension; F90.9 Attention-deficit hyperactivity disorder, unspecified type; M72.2 Plantar fascial fibromatosis; R20.0 Anesthesia of skin; R20.2 Paresthesia of skin; N92.0 Excessive and frequent menstruation with regular cycle; E66.811 Obesity, class 1; E66.09 Other obesity due to excess calories; Z68.33 Body mass index [BMI] 33.0-33.9, adult | CPT/HCPCS: 96127 ==